=== PATIENT | female | born 1945 | race Caucasian/White ===

== ENCOUNTER → 2017-12-08 07:36 | Outpatient (CLI) | payer MEDICARE, SELFPAY ==
[2017-12-08 10:00] LABS: Absolute Lymphocyte Count 1.65 X10^3/ul (0.83-4.51); Absolute Neutrophil Count 3.4 X10^3/uL (2.0-7.7); Basophil# 0.02 X10^3/uL; Basophil% 0.4 % (0-1); Eosinophil# 0.09 X10^3/uL; Eosinophils% 1.6 % (0-5); Hematocrit 44.4 % (37-47); Hemoglobin 14.5 g/dl (12.0-15.0); Lymphocyte # 1.65 X10^3/ul (4.0); Lymphocyte % 30.1 % (19-41); Mean Corp Hgb Conc 32.7 g/gl (32-36); Mean Corpuscular Volume 94.9 fL (81-99); Mean Platelet Vol. 10.7 fl (6.2-12.0); Monocyte# 0.35 X10^3/uL; Monocyte% 6.4 % (0-10); Neutrophil # 3.37 X10^3/uL (2.7-7.7); Neutrophil % 61.5 % (47-70); Platelet Count 150 K/mm3 (150-450); RBC Distribution Width CV 13.7 % (11.6-14.6); RBC Distribution Width SD 46.8 fl (35.1-43.9); Red Blood Count 4.68 M/mm3 (4.2-5.4); White Blood Count 5.5 K/mm3 (4.4-11.0)
[2017-12-08 10:02] LABS: POSITIVE COUNT NO; POSITIVE DIFFERENTIAL NO; POSITIVE MORPHOLOGY NO
[2017-12-08 10:17] LABS: Anion Gap 6 (5-15); BUN 13 mg/dL (7-18); BUN/Creat Ratio 15.7 RATIO (10-20); Calcium,Total 9.6 mg/dL (8.5-10.1); Chloride 104 mmol/L (98-107); Cholesterol 135 mg/dL (200); Creatinine, Serum 0.83 mg/dL (0.55-1.02); EST Glomerular Filtration Rate 72 mL/min (>60); Est Glom Filt Rate - Afr Amer 88 mL/min (>60); Glucose 92 mg/dL (74-106); High Density Lipoprotein 37 mg/dL; Potassium 3.7 mmol/L (3.5-5.1); Sodium Level 141 mmol/L (136-145); Triglycerides 167 mg/dL; Very Low Density Lipoprotein 33 mg/dL (5-40)
== END ==
PROVIDERS: Family Provider Family Medicine; PCP Family Medicine; Visit Provider Family Medicine
DX: I10 Essential (primary) hypertension (principal); M85.80 Other specified disorders of bone density and structure, unspecified site; E78.00 Pure hypercholesterolemia, unspecified
CPT/HCPCS: 36415; 80048; 80061; 85025

== ENCOUNTER → 2018-02-26 06:30 | Outpatient (CLI) | payer MEDICARE, SELFPAY ==
--- NOTE | 2018-02-26 06:33 | CT_ITS ---
STUDY: CT SOFT TISSUE NECK WITH CONTRAST REASON FOR EXAM: Female, 72 years old. Left ear/cheek fullness. Numbness and tingling feeling and left cheek/nose. RADIATION DOSAGE (If Supplied By Facility): CTDIvol = ( 13.73 ) mGy, DLP = ( 439.08 ) mGycm TECHNIQUE: The patient was scanned in a multi-detector CT scanner. High resolution transaxial imaging was performed following intravenous administration of 75 ml of Isovue 300 contrast material. Sagittal and coronal images were reconstructed. Individualized dose optimization techniques were used for this CT. COMPARISON: None. FINDINGS: Normal bilateral parotid glands. Normal bilateral interventional cardiologist spaces. Normal bilateral parapharyngeal spaces. Normal bilateral carotid spaces. Normal bilateral sublingual and submandibular glands and spaces. Normal visualized nasopharynx. Normal retropharyngeal space. Normal perivertebral space. Normal visualized bilateral faucial tonsils. The visualized tongue, tongue base and oropharynx are normal. The visualized cervical lymph nodes (levels I-) are within normal size limits, and maintain normal morphology. There is no demonstrated solid or cystic mass lesion. There is no abnormal contrast enhancement. Normal epiglottis, bilateral vallecula and hypopharynx. The pre-epiglottic and paraglottic adipose spaces are normal. Normal visualized bilateral piriform sinuses, aryepiglottic folds, vocal cords, and arytenoid-cricoid articulations. Normal subglottic trachea. Normal bilateral lobes of the thyroid gland. Normal visualized pulmonary apices. Normal visualized paranasal sinuses. Normal visualized cervical spine. CT/Soft Tissue Neck WITH Contrast IMPRESSION: Normal enhanced CT examination of the soft tissues of the neck. Electronically Signed: Jayjay Stokes MD at 14:14 EDT , Service support ,
[2018-02-26 06:50] LABS: CREATININE FINGERSTICK < 0.6 mg/dL (0.55-1.02)
--- NOTE | 2018-02-26 07:22 | BI_ITS ---
MAMMOGRAPHY - BILATERAL SCREENING REASON FOR EXAM: Female, 72 years old. Routine annual screening examination. PERTINENT HISTORY: Mother with breast cancer. TECHNIQUE: Digital bilateral breast fabi (3D mammographic acquisition) in the CC and MLO projections. 2-D mediolateral oblique (MLO) and craniocaudad (CC) views of both breasts were obtained. CAD: Full Field Digital Mammography with Computer Added Detection was performed. COMPARISON: Comparison is made with prior examination dated February 17, 2017 and February 12, 2016. FINDINGS: Breast Composition: There are scattered areas of fibroglandular density. There are no dominant masses or suspicious calcifications. No other significant abnormalities are identified. There has been no significant change since the prior study. BI/SCREENING MAMM (CAD), BILAT IMPRESSION: Stable bilateral screening mammogram. Yearly follow-up mammogram recommended. (A) ASSESSMENT CATEGORY: BIRADS Category 1: Negative. A letter regarding these results will be sent to the patient by the facility within 30 days. Approximately 10% of breast cancers are not detected by mammography. A normal mammogram should not delay biopsy of a clinically suspicious abnormality. [id number] Electronically Signed: Dariusz Saenz MD at 10:44 EDT Tel [phone], Service support ,
== END ==
PROVIDERS: Otolaryngology; Family Provider Family Medicine; PCP Family Medicine; Visit Provider Obstetrics & Gynecology
DX: H92.02 Otalgia, left ear (principal); Z12.31 Encounter for screening mammogram for malignant neoplasm of breast
CPT/HCPCS: 70491; 77063; 77067; Q9967

== ENCOUNTER → 2018-12-31 07:51 | Outpatient (CLI) | payer MEDICARE, SELFPAY ==
[2018-02-26 08:04] VITALS: BMI 29.5
[2018-12-31 08:45] LABS: AST(SGOT) 13 U/L (15-37); Alanine Aminotransfer ALT/SGPT 24 U/L (13-56); Albumin, Serum 3.9 g/dL (3.2-5.0); Alkaline Phosphatase 92 U/L (45-117); Anion Gap 4 (5-15); BUN 13 mg/dL (7-18); BUN/Creat Ratio 15.7 RATIO (10-20); Bilirubin, Direct 0.21 mg/dL (0.00-0.30); Calcium,Total 9.6 mg/dL (8.5-10.1); Chloride 107 mmol/L (98-107); Cholesterol 172 mg/dL (200); Creatinine, Serum 0.83 mg/dL (0.55-1.02); EST Glomerular Filtration Rate 72 mL/min (>60); Est Glom Filt Rate - Afr Amer 88 mL/min (>60); Glucose 104 mg/dL (74-106); High Density Lipoprotein 41 mg/dL; Potassium 3.8 mmol/L (3.5-5.1); Protein, Total 6.9 g/dL (6.4-8.2); Sodium Level 141 mmol/L (136-145); Triglycerides 181 mg/dL; Very Low Density Lipoprotein 36 mg/dL (5-40)
== END ==
PROVIDERS: Family Provider Family Medicine; PCP Family Medicine; Referring Provider Family Medicine; Visit Provider Family Medicine
DX: K76.89 Other specified diseases of liver (principal); E78.00 Pure hypercholesterolemia, unspecified; I10 Essential (primary) hypertension
CPT/HCPCS: 36415; 80048; 80061; 80076

== ENCOUNTER → 2019-03-04 08:24 | Outpatient (CLI) | payer MEDICARE, SELFPAY ==
[2018-02-26 08:04] VITALS: BMI 29.5
--- NOTE | 2019-03-04 08:26 | BI_ITS ---
MAMMOGRAPHY - BILATERAL SCREENING REASON FOR EXAM: Female, 73 years old. Routine annual screening examination. PERTINENT HISTORY: Mother with breast cancer. TECHNIQUE: Digital bilateral breast fabi (3D mammographic acquisition) in the CC and MLO projections. 2-D mediolateral oblique (MLO) and craniocaudad (CC) views of both breasts were obtained. CAD: Full Field Digital Mammography with Computer Added Detection was performed. COMPARISON: Comparison is made with prior study dated February 26, 2018 and February 17, 2017. FINDINGS: Breast Composition: There are scattered areas of fibroglandular density. There are no dominant masses or suspicious calcifications. Stable benign-appearing bilateral axillary lymph nodes. No other significant abnormalities are identified. There has been no significant change since the prior study. BI/SCREENING MAMM (CAD), BILAT IMPRESSION: Stable bilateral screening mammogram. Yearly follow-up mammogram recommended. (A) ASSESSMENT CATEGORY: BIRADS Category 2: Benign. A letter regarding these results will be sent to the patient by the facility within 30 days. Approximately 10% of breast cancers are not detected by mammography. A normal mammogram should not delay biopsy of a clinically suspicious abnormality. [id number] Electronically Signed: Dariusz Saenz, at 11:26 EDT , Service support ,
== END ==
PROVIDERS: Family Provider Family Medicine; PCP Family Medicine; Referring Provider Obstetrics & Gynecology; Visit Provider Obstetrics & Gynecology
DX: Z12.31 Encounter for screening mammogram for malignant neoplasm of breast (principal); Z80.3 Family history of malignant neoplasm of breast
CPT/HCPCS: 77067

== ENCOUNTER → 2019-03-06 14:54 | Outpatient (CLI) | payer MEDICARE, SELFPAY ==
[2019-03-04 09:10] VITALS: BMI 29.5
--- NOTE | 2019-03-06 14:57 | US_ITS ---
STUDY: ULTRASOUND BREAST - LEFT REASON FOR EXAM: Female, 73 years old. Palpable lump in the left breast. TECHNIQUE: Axial and longitudinal images of the LEFT breast were performed with a high resolution ultrasound transducer. COMPARISON: Comparison is made with prior mammogram dated March 04, 2019. FINDINGS: LEFT Breast: There is evidence of retroareolar ductal dilatation. No solid or cystic mass lesion is seen. US/Breast Limited Unilateral IMPRESSION: Retroareolar ductal dilatation. ASSESSMENT CATEGORY: BIRADS Category 2: Benign. A letter regarding these results will be sent to the patient by the facility within 30 days. Electronically Signed: Dariusz Saenz, at 15:53 EDT , Service support ,
== END ==
PROVIDERS: Family Provider Family Medicine; PCP Family Medicine; Referring Provider Obstetrics & Gynecology; Visit Provider Obstetrics & Gynecology
DX: N60.42 Mammary duct ectasia of left breast (principal)
CPT/HCPCS: 76642

== ENCOUNTER → 2019-06-11 16:44 | Outpatient (CLI) | payer MEDICARE, SELFPAY ==
[2019-06-11 15:03] VITALS: BMI 29.5
== END ==
PROVIDERS: Family Provider Family Medicine; PCP Family Medicine; Referring Provider Nurse Practitioner Women's Health; Visit Provider Nurse Practitioner Women's Health
DX: N63.20 Unspecified lump in the left breast, unspecified quadrant (principal); N94.9 Unspecified condition associated with female genital organs and menstrual cycle
CPT/HCPCS: 87070; 87086; 87088; 87186; 87205

== ENCOUNTER → 2019-06-14 15:04 | Outpatient (CLI) | payer MEDICARE, SELFPAY ==
[2019-06-11 15:03] VITALS: BMI 29.5
--- NOTE | 2019-06-14 15:05 | US_ITS ---
STUDY: ULTRASOUND OF THE FEMALE PELVIS - COMPLETE REASON FOR EXAM: Female, 73 years old. PELVIC PAIN LMP: Unknown. TECHNIQUE: Transabdominal and Transvaginal TECHNICAL QUALITY: Limited. Examination limited by bowel gas. COMPARISON: None. FINDINGS: The uterus is anteverted and is in a midline position. The uterus measures 6.8 x 3.1 cm. There are several nabothian cysts. There is some suggestion of a fluid collection within the cervix. The endometrium measures 3.8 mm in thickness, and is fluid distended. There is no demonstrated endometrial mass. There is no demonstrated myometrial mass. I.U.D. - The patient does not have an I.U.D. Bilateral ovaries are not visualized. There is no fluid in the cul-de-sac. The volume of the bladder was 540.87 ml. US/Pelvic (Non ) IMPRESSION: Uterine atrophy with fluid within the endometrium and possible complex fluid collection within the cervix, cannot exclude inflammatory process versus neoplasm. Further characterization with MRI of the pelvis with intravenous contrast recommended in nonacute setting. Nonvisualized ovaries. No free fluid. Electronically Signed: Tejal Quiroga MD at 4:16 EST , Service support ,
--- NOTE | 2019-06-14 15:05 | US_ITS ---
STUDY: ULTRASOUND OF THE FEMALE PELVIS - COMPLETE REASON FOR EXAM: Female, 73 years old. PELVIC PAIN LMP: Unknown. TECHNIQUE: Transabdominal and Transvaginal TECHNICAL QUALITY: Limited. Examination limited by bowel gas. COMPARISON: None. FINDINGS: The uterus is anteverted and is in a midline position. The uterus measures 6.8 x 3.1 cm. There are several nabothian cysts. There is some suggestion of a fluid collection within the cervix. The endometrium measures 3.8 mm in thickness, and is fluid distended. There is no demonstrated endometrial mass. There is no demonstrated myometrial mass. I.U.D. - The patient does not have an I.U.D. Bilateral ovaries are not visualized. There is no fluid in the cul-de-sac. The volume of the bladder was 540.87 ml. US/Transvaginal Non- IMPRESSION: Uterine atrophy with fluid within the endometrium and possible complex fluid collection within the cervix, cannot exclude inflammatory process versus neoplasm. Further characterization with MRI of the pelvis with intravenous contrast recommended in nonacute setting. Nonvisualized ovaries. No free fluid. Electronically Signed: Tejal Quiroga MD at 4:16 EST , Service support ,
== END ==
PROVIDERS: Family Provider Family Medicine; PCP Family Medicine; Referring Provider Nurse Practitioner Women's Health; Visit Provider Nurse Practitioner Women's Health
DX: R10.2 Pelvic and perineal pain (principal)
CPT/HCPCS: 76830; 76856

== ENCOUNTER 2019-09-09 12:39 | Emergency (ER) | payer MEDICARE, SELFPAY ==
[2019-06-11 15:03] VITALS: BMI 29.5
[2019-09-09 12:40] VITALS: BP 132/99; PULSE 87; RESP 20; TEMP 36.6; O2SAT 98
--- NOTE | 2019-09-09 12:50 | RAD_ITS ---
STUDY: X-RAY CHEST REASON FOR EXAM: Female, 73 years old. Productive cough TECHNIQUE: Single AP portable view of the chest. COMPARISON: Comparison is made with prior study dated January 30, 2014. FINDINGS: There is evidence of a infiltration in the left suprahilar region. This may represent a focal pneumonia. Radiographic follow-up until clearing is recommended. There is no demonstrated pleural abnormality. Normal size heart. Normal mediastinum and iram. Normal visualized pulmonary arteries. There is atherosclerotic tortuosity of the aortic arch and descending thoracic aorta. There are degenerative changes of the visualized thoracic spine. Normal visualized ribs, clavicles, and shoulders. There is no demonstrated abnormality of the visualized soft tissue structures of the upper abdomen. RAD/Chest 1 View (Portable) IMPRESSION: Focal infiltrate in the left suprahilar region suggestive of early pneumonia. Radiographic follow-up is recommended until clearing. Electronically Signed: Dariusz Saenz, at 13:30 EDT , Service support ,
--- NOTE | 2019-09-09 12:51 | ED.VISSUMM ---
- ER Visit Summary Date of Service: 09/09/19 Chief Complaint: Cough History of Present Illness: The patient is a 73 F who presents with a cough. She has had this for about 1 week. She states her cough is been mildly productive. She saw her PCP on September 01. He gave her Tessalon Perles but she is not improving. She had negative flu a and B testing at the PCP office. She has some slight nasal congestion. She denies a sore throat or ear pain. No fevers. No body aches. Denies any exposures to coronavirus. Is not a smoker. No history of any lung issues in the past. Physical Examination: Vital signs reviewed. HEENT exam unremarkable. Heart is regular rate and rhythm without murmurs. Lungs are clear to auscultation. Abdomen is soft and nontender. Extremities reveal no edema. Skin exam normal. Neurologic exam normal. Test Results: Chest x-ray shows a focal infiltrate in the left suprahilar area Emergency Department Course and Treatment: The patient was given albuterol MDI here. She does have a focal infiltrate on x-ray. Her vital signs are unremarkable. I feel she can be treated as an outpatient. I will give her doxycycline. She will call her doctor for follow-up. Treatment Plan: [] Disposition: Discharge Impression: Pneumonia This note was generated with [email or web address] dictation software. It may contain incorrect words, spelling, and punctuation that were not noted in review of the chart prior to signing ED Disposition - Plan for ED Patient: Disposition: Home or Assisted Living Instructions: ED PNEUMONITIS Adult Prescriptions: Doxycycline 100 mg PO BID #20 cap Transmission Status: Pending to [id number] Doxycycline 100 mg PO BID #20 cap Transmission Status: Pending to [facility] Referrals: Gelacio Hutchison MD [STAFF PHYSICIAN] -
[2019-09-09 13:15] VITALS: BP 132/99; PULSE 87; RESP 20; TEMP 36.6; O2SAT 98
== END 2019-09-09 14:42 | disposition home or self-care (01) ==
PROVIDERS: Emergency Provider Emergency Medicine; PCP Family Medicine
DX: J18.9 Pneumonia, unspecified organism (principal); I10 Essential (primary) hypertension; E78.00 Pure hypercholesterolemia, unspecified
CPT/HCPCS: 71045; 94640; 99282

== ENCOUNTER → 2019-09-23 09:19 | Outpatient (CLI) | payer MEDICARE, SELFPAY ==
--- NOTE | 2019-09-23 09:38 | RAD_ITS ---
STUDY: X-RAY CHEST REASON FOR EXAM: Female, 73 years old. RECHECK FOR RECENT PNEUMONIA DIAGNOSIS. PATIENT IS STILL COUGHING. TECHNIQUE: PA and lateral views of the chest. COMPARISON: Comparison is made with prior study dated September 09, 2019. FINDINGS: The previously seen left suprahilar infiltrate has cleared. No new infiltrate is present. There is no demonstrated pleural abnormality. Normal size heart. Normal mediastinum and iram. Normal visualized pulmonary arteries. There is atherosclerotic tortuosity of the aortic arch and descending thoracic aorta. Normal visualized thoracic spine. Normal visualized ribs, clavicles, and shoulders. There is no demonstrated abnormality of the visualized soft tissue structures of the upper abdomen. RAD/Chest PA and Lateral IMPRESSION: The left suprahilar infiltrate has cleared. Electronically Signed: Dariusz Saenz, at 10:14 EDT , Service support ,
== END ==
PROVIDERS: PCP Family Medicine; Referring Provider Family Medicine; Visit Provider Family Medicine
DX: J18.9 Pneumonia, unspecified organism (principal)
CPT/HCPCS: 71046

== ENCOUNTER → 2019-12-18 07:43 | Outpatient (CLI) | payer MEDICARE, SELFPAY ==
[2019-12-18 07:47] LABS: Mucous, Urine 0 SEEN /hpf (<or=2+)
[2019-12-18 10:28] LABS: Absolute Lymphocyte Count 1.51 X10^3/uL (0.83-4.51); Absolute Neutrophil Count 3.6 X10^3/uL (2.0-7.7); Basophil# 0.05 X10^3/uL; Basophil% 0.9 % (0-1); Eosinophil# 0.14 X10^3/uL; Eosinophils% 2.5 % (0-5); Hematocrit 45.3 % (37-47); Hemoglobin 14.6 g/dL (12.0-15.0); Lymphocyte # 1.51 X10^3/ul (4.0); Lymphocyte % 26.7 % (19-41); Mean Corp Hgb Conc 32.2 g/dL (32-36); Mean Corpuscular Hgb 31.1 pg (27.0-32.0); Mean Corpuscular Volume 96.4 fL (81-99); Mean Platelet Vol. 10.9 fl (6.2-12.0); Monocyte% 7.1 % (0-10); NRBC Flagged by Analyzer 0 % (0-5); Neutrophil # 3.55 X10^3/uL (2.7-7.7); Neutrophil % 62.8 % (47-70); Platelet Count 171 K/mm3 (150-450); RBC Distribution Width CV 13.3 % (11.6-14.6); RBC Distribution Width SD 47.8 fl (35.1-43.9); White Blood Count 5.7 K/mm3 (4.4-11.0)
[2019-12-18 10:30] LABS: Color, Urine Amber (Yellow); Glucose, Dipstick Normal (Normal); Ketone-Dipstick 5 mg/dl (Negative); Leukocyte Esterase-Dipstick 100 /ul (Negative); Nitrite-Dipstick Negative (Negative); Occult Blood-Urine 10 /ul (Negative); Protein-Dipstick 30 mg/dl (Negative); Specific Gravity, Urine 1.025 (1.002-1.030); Urine Clarity Clear (Clear); Urine Urobilinogen 4 mg/dl (Normal)
[2019-12-18 10:34] LABS: Urine Bilirubin Dipstick 1 mg/dL (Negative)
[2019-12-18 10:39] LABS: Bacteria 1+ /hpf (None Seen); Red Blood Cells-Urine 0-5 SEEN /hpf (0-5); Squamous Epithelial Cells - UA 0-5 SEEN /hpf (5-10); White Blood Cells 10-25 SEEN /hpf (0-5)
[2019-12-18 11:17] LABS: ALB/GLOB Ratio 1.2 RATIO (0.9-2.4); AST(SGOT) 14 U/L (15-37); Alanine Aminotransfer ALT/SGPT 25 U/L (13-56); Albumin, Serum 3.9 g/dL (3.2-5.0); Alkaline Phosphatase 90 U/L (45-117); Anion Gap 5 (5-15); BUN 15 mg/dL (7-18); BUN/Creat Ratio 16.6 RATIO (10-20); Calcium,Total 9.5 mg/dL (8.5-10.1); Chloride 105 mmol/L (98-107); Cholesterol 180 mg/dL (200); EST Glomerular Filtration Rate 65 mL/min (>60); Est Glom Filt Rate - Afr Amer 79 mL/min (>60); Globulin 3.2 g/dL (2.2-4.2); Glucose 104 mg/dL (74-106); High Density Lipoprotein 40 mg/dL; Potassium 3.5 mmol/L (3.5-5.1); Protein, Total 7.1 g/dL (6.4-8.2); Sodium Level 140 mmol/L (136-145); Thyroid Stim Hormone (TSH) 2.26 uIU/mL (0.358-3.74); Triglycerides 205 mg/dL; Very Low Density Lipoprotein 41 mg/dL (5-40)
[2019-12-19 14:24] LABS: Hemoglobin A1c 5.2 % (3.8-5.6)
== END ==
PROVIDERS: PCP Family Medicine; Referring Provider Family Medicine; Visit Provider Family Medicine
DX: I10 Essential (primary) hypertension (principal); R82.81 Pyuria; R73.09 Other abnormal glucose; E78.00 Pure hypercholesterolemia, unspecified
CPT/HCPCS: 36415; 80053; 80061; 81001; 83036; 84443; 85025

== ENCOUNTER → 2019-12-20 12:32 | Outpatient (CLI) | payer MEDICARE, SELFPAY | PROVIDERS: PCP Family Medicine; Referring Provider Family Medicine; Visit Provider Family Medicine | DX: R82.81 Pyuria (principal) | CPT/HCPCS: 87086; 87088 ==

== ENCOUNTER → 2020-03-17 12:26 | Outpatient (CLI) | payer MEDICARE, SELFPAY ==
[2019-06-11 15:03] VITALS: BMI 29.5
--- NOTE | 2020-03-17 12:26 | BI_ITS ---
MAMMOGRAPHY - BILATERAL SCREENING REASON FOR EXAM: Female, 74 years old. Routine annual screening examination. PERTINENT HISTORY: Mother with breast cancer. TECHNIQUE: Digital bilateral breast andrea (3D mammographic acquisition) in the CC and MLO projections. 2-D mediolateral oblique (MLO) and craniocaudad (CC) views of both breasts were obtained. CAD: Full Field Digital Mammography with Computer Added Detection was performed. COMPARISON: Comparison is made with prior examination dated 03/04/2019 and 02/26/2018. FINDINGS: Breast Composition: There are scattered areas of fibroglandular density. There are no dominant masses or suspicious calcifications. No other significant abnormalities are identified. There has been no significant change since the prior study. BI/SCREEN MAMM (CAD) W/ANDREA BILAT IMPRESSION: Stable bilateral screening mammogram. Yearly follow-up mammogram recommended. (A) ASSESSMENT CATEGORY: BIRADS Category 1: Negative. A letter regarding these results will be sent to the patient by the facility within 30 days. Approximately 10% of breast cancers are not detected by mammography. A normal mammogram should not delay biopsy of a clinically suspicious abnormality. [id number] Electronically Signed: Dariusz Saenz, at 14:26 EDT , Service support ,
== END ==
PROVIDERS: PCP Family Medicine; Referring Provider Obstetrics & Gynecology; Visit Provider Obstetrics & Gynecology
DX: Z12.31 Encounter for screening mammogram for malignant neoplasm of breast (principal)
CPT/HCPCS: 77063; 77067

== ENCOUNTER → 2020-04-02 10:11 | Outpatient (CLI) | payer MEDICARE, SELFPAY ==
[2020-03-17 13:06] VITALS: BMI 5033.5
--- NOTE | 2020-04-02 10:25 | BD_ITS ---
STUDY: DUAL ENERGY X-RAY ABSORPTIOMETRY / DXA REASON FOR EXAM: Female, 74 years old. Age of jc 54. Pat is 178.7# and 64 and quot; a loss of 3/4 and quot; per pat. Pat takes a BPM with a diuretic in it. Takes calcium and a multi-vit. Exercises moderatly. Fam hx of osteo. TECHNIQUE: Bone Mineral Density (BMD) measurements of lumbar spine and bilateral hips were obtained. COMPARISON: Comparison is made with prior study to 03/01/2017. FINDINGS: Lumbar Spine (L1-L4): g/cm2 (1.061) / T-score (-0.9) / Z-score (0.8) Findings are suggestive of normal bone density with a low fracture risk. Left Femur Total: g/cm2 (0.915) / T-score (-0.7) / Z-score (0.8) Left Femoral Neck: g/cm2 (0.739) / T-score (-2.2) / Z-score (-0.4) Right Femur Total: g/cm2 (0.967) / T-score (-0.3) / Z-score (1.3) Right Femoral Neck: g/cm2 (0.826) / T-score (-1.5) / Z-score (0.3) The T-Scores on the most recent prior examination were: Lumbar Spine (L1-L4): There has been improvement of bone density since the previous examination. Left Femur Total: which represents an improvement of 2.7%. Right Femur Total: which represents an improvement of 1.2%. BD/Dexa Bone Density Study IMPRESSION: The patient is considered osteopenic as outlined below according to World [employer] Organization (WHO) criteria with a moderate fracture risk. There has been improvement of bone density since the previous examination. Reference Information: The T-score is the number of standard deviations above or below the standard which is normal for young adults at their peak bone mineral density. The World Health Organization (WHO) interprets the T-scores as follows: Above -1 Normal bone density Between -1 and -2.5 Osteopenia Equal to / or below -2.5 Osteoporosis As a practical clinical guideline, osteopenia may be graded as follows: Mild -1 through -1.5 Moderate -1.6 through -2.0 Severe -2.1 through -2.4 The Z-score is the number of standard deviations above or below age-matched controls. A Z-score of less than -1.5 would be considered abnormal. References: 1. NIH Osteoporosis and Related Bone Diseases www osteo.org 2. International Society for Clinical Densitometry www iscd.org 3. National Osteoporosis Foundation www nof.org Electronically Signed: Dariusz Saenz, at 10:47 EDT , Service support ,
== END ==
PROVIDERS: PCP Family Medicine; Referring Provider Family Medicine; Visit Provider Family Medicine
DX: Z78.0 Asymptomatic menopausal state (principal)
CPT/HCPCS: 77080

== ENCOUNTER → 2020-09-02 07:53 | Outpatient (CLI) | payer MEDICARE, SELFPAY ==
[2020-03-17 13:06] VITALS: BMI 5033.5
[2020-09-02 07:59] LABS: Mucous, Urine 0 SEEN /hpf (<or=2+); Red Blood Cells-Urine 0 SEEN /hpf (0-5)
[2020-09-02 10:17] LABS: Absolute Lymphocyte Count 1.47 X10^3/uL (0.83-4.51); Absolute Neutrophil Count 3.6 X10^3/uL (2.0-7.7); Basophil# 0.05 X10^3/uL; Basophil% 0.9 % (0-1); Eosinophils% 1.8 % (0-5); Hematocrit 45.1 % (37-47); Hemoglobin 15.1 g/dL (12.0-15.0); Lymphocyte # 1.47 X10^3/ul (4.0); Lymphocyte % 26.3 % (19-41); Mean Corp Hgb Conc 33.5 g/dL (32-36); Mean Corpuscular Hgb 31.7 pg (27.0-32.0); Mean Corpuscular Volume 94.5 fL (81-99); Mean Platelet Vol. 11.1 fl (6.2-12.0); Monocyte# 0.39 X10^3/uL; NRBC Flagged by Analyzer 0 % (0-5); Neutrophil # 3.56 X10^3/uL (2.7-7.7); Neutrophil % 63.8 % (47-70); Platelet Count 162 K/mm3 (150-450); RBC Distribution Width CV 13.4 % (11.6-14.6); RBC Distribution Width SD 47.1 fl (35.1-43.9); Red Blood Count 4.77 M/mm3 (4.2-5.4); White Blood Count 5.6 K/mm3 (4.4-11.0)
[2020-09-02 10:18] LABS: Color, Urine Yellow (Yellow); Glucose, Dipstick Normal (Normal); Ketone-Dipstick 5 mg/dl (Negative); Leukocyte Esterase-Dipstick 100 /ul (Negative); Nitrite-Dipstick Negative (Negative); Occult Blood-Urine 10 /ul (Negative); Protein-Dipstick 30 mg/dl (Negative); Specific Gravity, Urine 1.025 (1.002-1.030); Urine Clarity Sl. Cloudy (Clear); Urine Urobilinogen 4 mg/dl (Normal)
[2020-09-02 10:19] LABS: Urine Bilirubin Dipstick 1 mg/dL (Negative)
[2020-09-02 10:31] LABS: Squamous Epithelial Cells - UA 0-5 SEEN /hpf (5-10); White Blood Cells 0-5 SEEN /hpf (0-5)
[2020-09-02 10:32] LABS: Bacteria RARE /hpf (None Seen)
[2020-09-02 10:56] LABS: ALB/GLOB Ratio 1.2 RATIO (0.9-2.4); AST(SGOT) 19 U/L (15-37); Alanine Aminotransfer ALT/SGPT 30 U/L (13-56); Alkaline Phosphatase 91 U/L (45-117); Anion Gap 8 (5-15); BUN 17 mg/dL (7-18); BUN/Creat Ratio 19.3 RATIO (10-20); Calcium,Total 9.8 mg/dL (8.5-10.1); Chloride 103 mmol/L (98-107); Cholesterol 189 mg/dL (200); Creatinine, Serum 0.88 mg/dL (0.55-1.02); EST Glomerular Filtration Rate 67 mL/min (>60); Est Glom Filt Rate - Afr Amer 81 mL/min (>60); Globulin 3.2 g/dL (2.2-4.2); Glucose 100 mg/dL (74-106); High Density Lipoprotein 43 mg/dL; Phosphorus 2.6 mg/dL (2.5-4.9); Potassium 3.2 mmol/L (3.5-5.1); Protein, Total 7.2 g/dL (6.4-8.2); Sodium Level 140 mmol/L (136-145); Triglycerides 203 mg/dL; Very Low Density Lipoprotein 41 mg/dL (5-40)
== END ==
PROVIDERS: PCP Family Medicine; Referring Provider Family Medicine; Visit Provider Family Medicine
DX: I10 Essential (primary) hypertension (principal); E78.00 Pure hypercholesterolemia, unspecified; M85.80 Other specified disorders of bone density and structure, unspecified site
CPT/HCPCS: 36415; 80053; 80061; 81001; 82306; 84100; 85025

== ENCOUNTER → 2020-09-26 09:24 | Outpatient (CLI) | payer MEDICARE, SELFPAY ==
[2020-03-17 13:06] VITALS: BMI 5033.5
[2020-09-26 10:18] LABS: Anion Gap 3 (5-15); BUN 14 mg/dL (7-18); BUN/Creat Ratio 14.7 RATIO (10-20); Calcium,Total 9.9 mg/dL (8.5-10.1); Chloride 104 mmol/L (98-107); Creatinine, Serum 0.95 mg/dL (0.55-1.02); EST Glomerular Filtration Rate 61 mL/min (>60); Est Glom Filt Rate - Afr Amer 74 mL/min (>60); Glucose 86 mg/dL (74-106); Potassium 3.5 mmol/L (3.5-5.1); Sodium Level 139 mmol/L (136-145)
== END ==
PROVIDERS: PCP Family Medicine; Referring Provider Family Medicine; Visit Provider Family Medicine
DX: I10 Essential (primary) hypertension (principal)
CPT/HCPCS: 36415; 80048

== ENCOUNTER → 2020-12-03 08:13 | Outpatient (CLI) | payer MEDICARE, SELFPAY ==
[2020-03-17 13:06] VITALS: BMI 5033.5
[2020-12-03 10:10] LABS: Absolute Lymphocyte Count 1.64 X10^3/uL (0.83-4.51); Absolute Neutrophil Count 4.3 X10^3/uL (2.0-7.7); Basophil# 0.06 X10^3/uL; Basophil% 0.9 % (0-1); Eosinophil# 0.12 X10^3/uL; Eosinophils% 1.8 % (0-5); Hematocrit 44.3 % (37-47); Hemoglobin 14.6 g/dL (12.0-15.0); Lymphocyte # 1.64 X10^3/ul (0.83-4.51); Lymphocyte % 24.7 % (19-41); Mean Corpuscular Volume 94.1 fL (81-99); Mean Platelet Vol. 10.6 fl (6.2-12.0); Monocyte# 0.52 X10^3/uL; Monocyte% 7.8 % (0-10); NRBC Flagged by Analyzer 0 % (0-5); Neutrophil % 64.6 % (47-70); Platelet Count 185 K/mm3 (150-450); RBC Distribution Width CV 13.2 % (11.6-14.6); RBC Distribution Width SD 45.5 fl (35.1-43.9); Red Blood Count 4.71 M/mm3 (4.2-5.4); White Blood Count 6.7 K/mm3 (4.4-11.0)
[2020-12-03 10:26] LABS: ALB/GLOB Ratio 1.4 RATIO (0.9-2.4); AST(SGOT) 15 U/L (15-37); Alanine Aminotransfer ALT/SGPT 23 U/L (13-56); Albumin, Serum 4.1 g/dL (3.2-5.0); Alkaline Phosphatase 90 U/L (45-117); Anion Gap 7 (5-15); BUN 16 mg/dL (7-18); BUN/Creat Ratio 18.6 RATIO (10-20); Calcium,Total 10.3 mg/dL (8.5-10.1); Chloride 103 mmol/L (98-107); Cholesterol 156 mg/dL (200); Creatinine, Serum 0.86 mg/dL (0.55-1.02); EST Glomerular Filtration Rate 69 mL/min (>60); Est Glom Filt Rate - Afr Amer 83 mL/min (>60); Glucose 98 mg/dL (74-106); High Density Lipoprotein 40 mg/dL; Potassium 3.9 mmol/L (3.5-5.1); Protein, Total 7.1 g/dL (6.4-8.2); Sodium Level 141 mmol/L (136-145); Triglycerides 236 mg/dL; Very Low Density Lipoprotein 47 mg/dL (5-40)
[2020-12-03 10:39] LABS: Vitamin D,25 Hydroxy 71.3 ng/mL
[2020-12-03 10:52] LABS: Microalbumin,Random Urine 10.6 mg/L (NO RANGE EST.); Microalbumin:Creatinine Ratio 11.8 mg/g CRE (<30 mg/g CRE)
[2020-12-04 16:13] LABS: PTHIN 103.1 pg/mL (18.4-80.1)
== END ==
PROVIDERS: PCP Family Medicine; Visit Provider Family Medicine
DX: I10 Essential (primary) hypertension (principal); E55.9 Vitamin D deficiency, unspecified; E78.00 Pure hypercholesterolemia, unspecified
CPT/HCPCS: 36415; 80053; 80061; 82043; 82306; 82570; 83970; 85025

== ENCOUNTER → 2021-03-05 08:13 | Outpatient (CLI) | payer MEDICARE, SELFPAY ==
[2021-03-05 10:08] LABS: Absolute Neutrophil Count 4.1 X10^3/uL (2.0-7.7); Basophil# 0.05 X10^3/uL; Basophil% 0.8 % (0-1); Eosinophils% 1.6 % (0-5); Hematocrit 43.1 % (37-47); Hemoglobin 14.3 g/dL (12.0-15.0); Lymphocyte % 23.1 % (19-41); Mean Corp Hgb Conc 33.2 g/dL (32-36); Mean Corpuscular Hgb 31.2 pg (27.0-32.0); Mean Corpuscular Volume 93.9 fL (81-99); Monocyte# 0.45 X10^3/uL; Monocyte% 7.4 % (0-10); NRBC Flagged by Analyzer 0 % (0-5); Neutrophil # 4.06 X10^3/uL (2.7-7.7); Neutrophil % 66.9 % (47-70); Platelet Count 173 K/mm3 (150-450); RBC Distribution Width CV 13.6 % (11.6-14.6); RBC Distribution Width SD 47.2 fl (35.1-43.9); Red Blood Count 4.59 M/mm3 (4.2-5.4); White Blood Count 6.1 K/mm3 (4.4-11.0)
[2021-03-05 10:35] LABS: PTHIN 122.3 pg/mL (18.4-80.1)
[2021-03-05 10:36] LABS: ALB/GLOB Ratio 1.1 RATIO (0.9-2.4); AST(SGOT) 13 U/L (15-37); Alanine Aminotransfer ALT/SGPT 23 U/L (13-56); Albumin, Serum 3.9 g/dL (3.2-5.0); Alkaline Phosphatase 85 U/L (45-117); Anion Gap 5 (5-15); BUN 13 mg/dL (7-18); BUN/Creat Ratio 14.8 RATIO (10-20); Calcium,Total 10.2 mg/dL (8.5-10.1); Chloride 104 mmol/L (98-107); Cholesterol 161 mg/dL (200); Creatinine, Serum 0.88 mg/dL (0.55-1.02); EST Glomerular Filtration Rate 67 mL/min (>60); Est Glom Filt Rate - Afr Amer 81 mL/min (>60); Globulin 3.4 g/dL (2.2-4.2); Glucose 108 mg/dL (74-106); High Density Lipoprotein 40 mg/dL; Potassium 3.7 mmol/L (3.5-5.1); Protein, Total 7.3 g/dL (6.4-8.2); Sodium Level 140 mmol/L (136-145); Triglycerides 206 mg/dL; Very Low Density Lipoprotein 41 mg/dL (5-40)
[2021-03-05 11:43] LABS: Vitamin D,25 Hydroxy 29.4 ng/mL
== END ==
PROVIDERS: PCP Family Medicine; Referring Provider Family Medicine; Visit Provider Family Medicine
DX: I10 Essential (primary) hypertension (principal); E78.00 Pure hypercholesterolemia, unspecified; E55.9 Vitamin D deficiency, unspecified; E21.3 Hyperparathyroidism, unspecified
CPT/HCPCS: 36415; 80053; 80061; 82306; 83970; 85025

== ENCOUNTER → 2021-03-22 09:52 | Outpatient (CLI) | payer MEDICARE, SELFPAY ==
[2020-03-17 13:06] VITALS: BMI 5033.5
--- NOTE | 2021-03-22 09:55 | BI_ITS ---
MAMMOGRAPHY - BILATERAL SCREENING REASON FOR EXAM: Female, 75 years old. Routine annual screening examination. PERTINENT HISTORY: Mother with breast cancer. TECHNIQUE: Digital bilateral breast andrea (3D mammographic acquisition) in the CC and MLO projections. 2-D mediolateral oblique (MLO) and craniocaudad (CC) views of both breasts were obtained. CAD: Full Field Digital Mammography with Computer Added Detection was performed. COMPARISON: Comparison is made with prior study dated 03/17/2020 and 03/04/2019. FINDINGS: Breast Composition: There are scattered areas of fibroglandular density. There are no dominant masses or suspicious calcifications. Small benign appearing bilateral axillary lymph nodes. No other significant abnormalities are identified. There has been no significant change since the prior study. BI/SCRN MAMM (CAD)W/ANDREA BILAT IMPRESSION: Stable bilateral screening mammogram. Yearly follow-up mammogram recommended. (A) ASSESSMENT CATEGORY: BIRADS Category 2: Benign. A letter regarding these results will be sent to the patient by the facility within 30 days. Approximately 10% of breast cancers are not detected by mammography. A normal mammogram should not delay biopsy of a clinically suspicious abnormality. [id number] Electronically Signed: Dariusz Saenz MD at 11:05 EDT , Service support ,
== END ==
PROVIDERS: PCP Family Medicine; Referring Provider Obstetrics & Gynecology; Visit Provider Obstetrics & Gynecology
DX: Z12.31 Encounter for screening mammogram for malignant neoplasm of breast (principal)
CPT/HCPCS: 77063; 77067

== ENCOUNTER → 2021-04-13 09:26 | Outpatient (CLI) | payer MEDICARE, SELFPAY ==
--- NOTE | 2021-04-13 09:31 | NM_ITS ---
CLINICAL: 75-year-old female with reported history of hypercalcemia. 99m Tc SESTAMIBI DUAL PHASE PARATHYROID SCINTIGRAPHY COMPARISON: None available FINDINGS: Following the intravenous administration of 25.8 mCi of 99m Tc sestamibi, image acquisitions of the anterior neck at approximately 15 minutes and 3.0 hours post radiopharmaceutical provision reveal: 1. Immediate static blood pool acquisitions demonstrate distribution of the radiopharmaceutical in the right-left thyroid colloid of a vaguely U-shaped thyroid gland. 2. Delayed images depict persistent tracer uptake defined in the superior pole of the left thyroid bed with otherwise near complete washout of the radiotracer from the previously defined remaining thyroid parenchyma. NM/Parathyroid Scan IMPRESSION: 1. ABNORMAL-POSITIVE 99m Tc SESTAMIBI PARATHYROID IMAGING DUAL PHASE EXAMINATION. 2. There is scintigraphic evidence of an apparent parathyroid adenoma involving the superior pole of the left thyroid bed as described above. Electronically Signed: Stanford Mendez DO at 22:16 EST Tel , Service support ,
== END ==
PROVIDERS: PCP Family Medicine; Referring Provider Family Medicine; Visit Provider Family Medicine
DX: E21.3 Hyperparathyroidism, unspecified (principal)
CPT/HCPCS: 78070; A9500

== ENCOUNTER 2021-06-18 09:31 | Outpatient (CLI) | payer MEDICARE, SELFPAY ==
[2021-06-18 10:37] LABS: Calcium,Total 8.7 mg/dL (8.5-10.1)
[2021-06-18 11:46] LABS: PTHIN 11.7 pg/mL (18.4-80.1)
== END 2021-06-18 23:59 | disposition home or self-care (01) ==
PROVIDERS: PCP Family Medicine; Referring Provider Family Medicine; Visit Provider Surgery Surgical Oncology
DX: E21.3 Hyperparathyroidism, unspecified (principal)
CPT/HCPCS: 36415; 82306; 82310; 83970

== ENCOUNTER 2021-08-09 14:23 | Outpatient (CLI) | payer MEDICARE, SELFPAY ==
[2021-08-09 18:06] LABS: Absolute Lymphocyte Count 1.71 X10^3/uL (0.83-4.51); Basophil# 0.05 X10^3/uL; Basophil% 0.7 % (0-1); Eosinophil# 0.17 X10^3/uL; Eosinophils% 2.3 % (0-5); Hematocrit 43.4 % (37-47); Hemoglobin 13.9 g/dL (12.0-15.0); Lymphocyte # 1.71 X10^3/ul (0.83-4.51); Mean Corpuscular Hgb 30.2 pg (27.0-32.0); Mean Corpuscular Volume 94.3 fL (81-99); Monocyte# 0.49 X10^3/uL; Monocyte% 6.6 % (0-10); NRBC Flagged by Analyzer 0 % (0-5); Neutrophil % 67.1 % (47-70); Platelet Count 198 K/mm3 (150-450); RBC Distribution Width CV 13.9 % (11.6-14.6); RBC Distribution Width SD 47.8 fl (35.1-43.9); White Blood Count 7.4 K/mm3 (4.4-11.0)
[2021-08-09 18:44] LABS: Vitamin D,25 Hydroxy 33.7 ng/mL
[2021-08-09 18:48] LABS: ALB/GLOB Ratio 1.3 RATIO (0.9-2.4); AST(SGOT) 20 U/L (15-37); Alanine Aminotransfer ALT/SGPT 29 U/L (13-56); Alkaline Phosphatase 93 U/L (45-117); Anion Gap 5 (5-15); BUN 13 mg/dL (7-18); BUN/Creat Ratio 13.9 RATIO (10-20); Calcium,Total 8.6 mg/dL (8.5-10.1); Chloride 105 mmol/L (98-107); Creatinine, Serum 0.93 mg/dL (0.55-1.02); EST Glomerular Filtration Rate 63 mL/min (>60); Est Glom Filt Rate - Afr Amer 76 mL/min (>60); Globulin 3.1 g/dL (2.2-4.2); Glucose 95 mg/dL (74-106); Potassium 3.3 mmol/L (3.5-5.1); Protein, Total 7.1 g/dL (6.4-8.2); Sodium Level 140 mmol/L (136-145)
[2021-08-10 08:24] LABS: PTHIN 51.7 pg/mL (18.4-80.1)
== END 2021-08-09 23:59 | disposition home or self-care (01) ==
LOC: MFPLAB 14:26
PROVIDERS: PCP Family Medicine; Visit Provider Family Medicine
DX: E78.00 Pure hypercholesterolemia, unspecified (principal); E55.9 Vitamin D deficiency, unspecified
CPT/HCPCS: 36415; 80053; 82306; 83970; 85025

== ENCOUNTER 2021-08-11 08:46 | Outpatient (CLI) | payer MEDICARE, SELFPAY ==
[2021-08-11 10:45] LABS: Cholesterol 142 mg/dL (200); High Density Lipoprotein 39 mg/dL; Triglycerides 167 mg/dL; Very Low Density Lipoprotein 33 mg/dL (5-40)
== END 2021-08-11 23:59 | disposition home or self-care (01) ==
LOC: MFPLAB 08:48
PROVIDERS: PCP Family Medicine; Referring Provider Family Medicine; Visit Provider Family Medicine
DX: E78.00 Pure hypercholesterolemia, unspecified (principal)
CPT/HCPCS: 36415; 80061

== ENCOUNTER 2021-08-19 09:53 | Outpatient (CLI) | payer MEDICARE, SELFPAY ==
[2021-08-19 12:35] LABS: Anion Gap 6 (5-15); BUN 17 mg/dL (7-18); BUN/Creat Ratio 18.5 RATIO (10-20); Calcium,Total 9.1 mg/dL (8.5-10.1); Chloride 102 mmol/L (98-107); Creatinine, Serum 0.92 mg/dL (0.55-1.02); EST Glomerular Filtration Rate 64 mL/min (>60); Est Glom Filt Rate - Afr Amer 77 mL/min (>60); Glucose 90 mg/dL (74-106); Magnesium 2.1 mg/dL (1.6-2.6); Potassium 3.3 mmol/L (3.5-5.1); Sodium Level 140 mmol/L (136-145)
== END 2021-08-19 23:59 | disposition home or self-care (01) ==
LOC: MFPLAB 09:55
PROVIDERS: PCP Family Medicine; Referring Provider Family Medicine; Visit Provider Family Medicine
DX: E87.6 Hypokalemia (principal)
CPT/HCPCS: 36415; 80048; 83735

== ENCOUNTER 2021-08-30 10:28 | Outpatient (CLI) | payer MEDICARE, SELFPAY ==
[2021-08-30 12:30] LABS: Potassium 3.4 mmol/L (3.5-5.1)
== END 2021-08-30 23:59 | disposition home or self-care (01) ==
LOC: MFPLAB 10:29
PROVIDERS: PCP Family Medicine; Visit Provider Family Medicine
DX: I10 Essential (primary) hypertension (principal)
CPT/HCPCS: 36415; 84132

== ENCOUNTER 2021-09-10 09:34 | Outpatient (CLI) | payer MEDICARE, SELFPAY ==
[2021-09-10 12:50] LABS: Anion Gap 4 (5-15); BUN 19 mg/dL (7-18); BUN/Creat Ratio 21.8 RATIO (10-20); Calcium,Total 8.2 mg/dL (8.5-10.1); Chloride 102 mmol/L (98-107); Creatinine, Serum 0.87 mg/dL (0.55-1.02); EST Glomerular Filtration Rate 68 mL/min (>60); Est Glom Filt Rate - Afr Amer 82 mL/min (>60); Glucose 86 mg/dL (74-106); Potassium 3.6 mmol/L (3.5-5.1); Sodium Level 139 mmol/L (136-145)
== END 2021-09-10 23:59 | disposition home or self-care (01) ==
LOC: MFPLAB 09:37
PROVIDERS: PCP Family Medicine; Referring Provider Family Medicine; Visit Provider Family Medicine
DX: I10 Essential (primary) hypertension (principal)
CPT/HCPCS: 36415; 80048

== ENCOUNTER → 2021-11-05 | Outpatient (CLI) | payer MEDICARE, SELFPAY ==
[2021-11-05 08:36] LABS: Mucous, Urine 0 SEEN /hpf (<or=2+); Red Blood Cells-Urine 0 SEEN /hpf (0-5)
[2021-11-05 10:01] LABS: Color, Urine Yellow (Yellow); Glucose, Dipstick Normal (Normal); Ketone-Dipstick Negative (Negative); Leukocyte Esterase-Dipstick 500 /ul (Negative); Nitrite-Dipstick Negative (Negative); Occult Blood-Urine Negative /ul (Negative); Protein-Dipstick Negative (Negative); Specific Gravity, Urine 1.005 (1.002-1.030); Urine Bilirubin Dipstick Negative (Negative); Urine Clarity Clear (Clear); Urine Urobilinogen Normal (Normal)
[2021-11-05 10:05] LABS: Absolute Lymphocyte Count 1.35 X10^3/uL (0.83-4.51); Absolute Neutrophil Count 4.3 X10^3/uL (2.0-7.7); Basophil# 0.06 X10^3/uL; Basophil% 0.9 % (0-1); Eosinophil# 0.13 X10^3/uL; Hematocrit 42.8 % (37-47); Hemoglobin 14.1 g/dL (12.0-15.0); Lymphocyte # 1.35 X10^3/ul (0.83-4.51); Lymphocyte % 20.9 % (19-41); Mean Corp Hgb Conc 32.9 g/dL (32-36); Mean Corpuscular Hgb 30.6 pg (27.0-32.0); Mean Corpuscular Volume 92.8 fL (81-99); Mean Platelet Vol. 10.4 fl (6.2-12.0); Monocyte# 0.54 X10^3/uL; Monocyte% 8.4 % (0-10); NRBC Flagged by Analyzer 0 % (0-5); Neutrophil # 4.34 X10^3/uL (2.7-7.7); Neutrophil % 67.3 % (47-70); Platelet Count 192 K/mm3 (150-450); RBC Distribution Width SD 47.8 fl (35.1-43.9); Red Blood Count 4.61 M/mm3 (4.2-5.4); White Blood Count 6.5 K/mm3 (4.4-11.0)
[2021-11-05 10:17] LABS: Bacteria 1+ /hpf (None Seen); Squamous Epithelial Cells - UA 0-5 SEEN /hpf (5-10); White Blood Cells 0-5 SEEN /hpf (0-5)
[2021-11-05 10:22] LABS: ALB/GLOB Ratio 1.1 RATIO (0.9-2.4); AST(SGOT) 15 U/L (15-37); Alanine Aminotransfer ALT/SGPT 27 U/L (13-56); Albumin, Serum 3.7 g/dL (3.2-5.0); Alkaline Phosphatase 74 U/L (45-117); Anion Gap 6 (5-15); BUN 15 mg/dL (7-18); Calcium,Total 8.5 mg/dL (8.5-10.1); Chloride 104 mmol/L (98-107); Creatinine, Serum 0.94 mg/dL (0.55-1.02); EST Glomerular Filtration Rate 62 mL/min (>60); Est Glom Filt Rate - Afr Amer 75 mL/min (>60); Globulin 3.5 g/dL (2.2-4.2); Glucose 97 mg/dL (74-106); PTHIN 50.4 pg/mL (18.4-80.1); Potassium 3.5 mmol/L (3.5-5.1); Protein, Total 7.2 g/dL (6.4-8.2); Sodium Level 140 mmol/L (136-145)
== END | disposition home or self-care (01) ==
LOC: MFPLAB 08:33
PROVIDERS: PCP Family Medicine; Visit Provider Family Medicine
DX: I10 Essential (primary) hypertension (principal); E55.9 Vitamin D deficiency, unspecified; E83.52 Hypercalcemia
CPT/HCPCS: 36415; 80053; 81001; 82306; 83970; 85025

== ENCOUNTER → 2022-02-04 | Outpatient (CLI) | payer MEDICARE, SELFPAY ==
[2022-02-04 08:33] LABS: Mucous, Urine 0 SEEN /hpf (<or=2+); Red Blood Cells-Urine 0 SEEN /hpf (0-5)
[2022-02-04 10:05] LABS: Absolute Neutrophil Count 4.1 X10^3/uL (2.0-7.7); Basophil# 0.06 X10^3/uL; Eosinophil# 0.13 X10^3/uL; Eosinophils% 2.1 % (0-5); Hematocrit 42.5 % (37-47); Hemoglobin 13.9 g/dL (12.0-15.0); Lymphocyte % 22.8 % (19-41); Mean Corp Hgb Conc 32.7 g/dL (32-36); Mean Corpuscular Hgb 30.3 pg (27.0-32.0); Mean Corpuscular Volume 92.6 fL (81-99); Mean Platelet Vol. 10.5 fl (6.2-12.0); Monocyte# 0.46 X10^3/uL; Monocyte% 7.5 % (0-10); NRBC Flagged by Analyzer 0 % (0-5); Neutrophil # 4.09 X10^3/uL (2.7-7.7); Neutrophil % 66.4 % (47-70); Platelet Count 168 K/mm3 (150-450); RBC Distribution Width CV 14.2 % (11.6-14.6); RBC Distribution Width SD 47.9 fl (35.1-43.9); Red Blood Count 4.59 M/mm3 (4.2-5.4); White Blood Count 6.2 K/mm3 (4.4-11.0)
[2022-02-04 10:19] LABS: Color, Urine Yellow (Yellow); Glucose, Dipstick Normal (Normal); Ketone-Dipstick Negative (Negative); Leukocyte Esterase-Dipstick 25 /ul (Negative); Nitrite-Dipstick Negative (Negative); Occult Blood-Urine Negative /ul (Negative); Protein-Dipstick Negative (Negative); Specific Gravity, Urine 1.005 (1.002-1.030); Urine Bilirubin Dipstick Negative (Negative); Urine Clarity Clear (Clear); Urine Urobilinogen 1 mg/dl (Normal)
[2022-02-04 10:21] LABS: ALB/GLOB Ratio 1.1 RATIO (0.9-2.4); AST(SGOT) 9 U/L (15-37); Alanine Aminotransfer ALT/SGPT 24 U/L (13-56); Albumin, Serum 3.6 g/dL (3.2-5.0); Alkaline Phosphatase 83 U/L (45-117); Anion Gap 7 (5-15); BUN 15 mg/dL (7-18); BUN/Creat Ratio 16.3 RATIO (10-20); Calcium,Total 8.3 mg/dL (8.5-10.1); Chloride 104 mmol/L (98-107); Cholesterol 137 mg/dL (200); Creatinine, Serum 0.92 mg/dL (0.55-1.02); EST Glomerular Filtration Rate 63 mL/min (>60); Est Glom Filt Rate - Afr Amer 77 mL/min (>60); Globulin 3.3 g/dL (2.2-4.2); Glucose 103 mg/dL (74-106); High Density Lipoprotein 39 mg/dL; Potassium 3.5 mmol/L (3.5-5.1); Protein, Total 6.9 g/dL (6.4-8.2); Sodium Level 142 mmol/L (136-145); Triglycerides 143 mg/dL; Very Low Density Lipoprotein 29 mg/dL (5-40)
[2022-02-04 10:28] LABS: PTHIN 41.9 pg/mL (18.4-80.1)
[2022-02-04 10:48] LABS: Bacteria 1+ /hpf (None Seen); Squamous Epithelial Cells - UA 0-5 SEEN /hpf (5-10); White Blood Cells 0-5 SEEN /hpf (0-5)
[2022-02-04 15:09] LABS: Hemoglobin A1c 5.6 % (3.8-5.6)
== END | disposition home or self-care (01) ==
LOC: MFPLAB 08:32
PROVIDERS: PCP Family Medicine; Visit Provider Family Medicine
DX: R73.09 Other abnormal glucose (principal); M85.80 Other specified disorders of bone density and structure, unspecified site; E78.00 Pure hypercholesterolemia, unspecified; I10 Essential (primary) hypertension
CPT/HCPCS: 80053; 80061; 81001; 82306; 83036; 83970; 85025

== ENCOUNTER → 2022-03-28 | Outpatient (CLI) | payer MEDICARE, SELFPAY ==
--- NOTE | 2022-03-28 12:25 | BI_ITS ---
MAMMOGRAPHY - BILATERAL SCREENING REASON FOR EXAM: Female, 76 years old. Routine annual screening examination. PERTINENT HISTORY: Mother with breast cancer. TECHNIQUE: Digital bilateral breast andrea (3D mammographic acquisition) in the CC and MLO projections. 2-D mediolateral oblique (MLO) and craniocaudad (CC) views of both breasts were obtained. CAD: Full Field Digital Mammography with Computer Added Detection was performed. COMPARISON: Comparison is made with prior examination dated 03/22/2021 and 03/17/2020. FINDINGS: Breast Composition: There are scattered areas of fibroglandular density. There are no dominant masses or suspicious calcifications. Stable small benign appearing bilateral axillary lymph nodes. No other significant abnormalities are identified. There has been no significant change since the prior study. BI/SCRN MAMM (CAD)W/ANDREA BILAT IMPRESSION: Stable bilateral screening mammogram. Yearly follow-up mammogram recommended. (A) ASSESSMENT CATEGORY: BIRADS Category 2: Benign. A letter regarding these results will be sent to the patient by the facility within 30 days. Approximately 10% of breast cancers are not detected by mammography. A normal mammogram should not delay biopsy of a clinically suspicious abnormality. [id number] Electronically Signed: Dariusz Saenz MD at 13:14 EDT ,
== END | disposition home or self-care (01) ==
LOC: OPBI 12:22
PROVIDERS: PCP Family Medicine; Visit Provider Obstetrics & Gynecology
DX: Z12.31 Encounter for screening mammogram for malignant neoplasm of breast (principal)
CPT/HCPCS: 77063; 77067

== ENCOUNTER → 2022-06-24 | Outpatient (CLI) | payer MEDICARE, SELFPAY ==
[2022-06-24 11:25] LABS: Bacteria 0 SEEN /hpf (None Seen); Mucous, Urine 0 SEEN /hpf (<or=2+); Red Blood Cells-Urine 0 SEEN /hpf (0-5)
[2022-06-24 12:05] LABS: Absolute Lymphocyte Count 1.33 X10^3/uL (0.83-4.51); Absolute Neutrophil Count 6.1 X10^3/uL (2.0-7.7); Basophil# 0.06 X10^3/uL; Basophil% 0.7 % (0-1); Eosinophil# 0.11 X10^3/uL; Eosinophils% 1.3 % (0-5); Hematocrit 43.8 % (37-47); Hemoglobin 14.3 g/dL (12.0-15.0); Lymphocyte # 1.33 X10^3/ul (0.83-4.51); Lymphocyte % 16.3 % (19-41); Mean Corp Hgb Conc 32.6 g/dL (32-36); Mean Corpuscular Hgb 30.2 pg (27.0-32.0); Mean Corpuscular Volume 92.4 fL (81-99); Mean Platelet Vol. 10.4 fl (6.2-12.0); Monocyte# 0.52 X10^3/uL; Monocyte% 6.4 % (0-10); NRBC Flagged by Analyzer 0 % (0-5); Neutrophil # 6.13 X10^3/uL (2.7-7.7); Neutrophil % 75.1 % (47-70); Platelet Count 185 K/mm3 (150-450); RBC Distribution Width CV 13.5 % (11.6-14.6); RBC Distribution Width SD 46.5 fl (35.1-43.9); Red Blood Count 4.74 M/mm3 (4.2-5.4); White Blood Count 8.2 K/mm3 (4.4-11.0)
[2022-06-24 12:23] LABS: Color, Urine Yellow (Yellow); Glucose, Dipstick Normal (Normal); Ketone-Dipstick Negative (Negative); Leukocyte Esterase-Dipstick 25 /ul (Negative); Nitrite-Dipstick Negative (Negative); Occult Blood-Urine Negative /ul (Negative); Protein-Dipstick Negative (Negative); Urine Bilirubin Dipstick Negative (Negative); Urine Clarity Clear (Clear); Urine Urobilinogen Normal (Normal)
[2022-06-24 12:33] LABS: Vitamin D,25 Hydroxy 40.5 ng/mL
[2022-06-24 12:40] LABS: PTHIN 42.6 pg/mL (18.4-80.1)
[2022-06-24 12:50] LABS: ALB/GLOB Ratio 1.3 RATIO (0.9-2.4); AST(SGOT) 11 U/L (15-37); Alanine Aminotransfer ALT/SGPT 25 U/L (13-56); Albumin, Serum 3.9 g/dL (3.2-5.0); Alkaline Phosphatase 88 U/L (45-117); Anion Gap 7 (5-15); BUN 18 mg/dL (7-18); BUN/Creat Ratio 21.1 RATIO (10-20); Calcium,Total 8.8 mg/dL (8.5-10.1); Chloride 101 mmol/L (98-107); Cholesterol 154 mg/dL (200); Creatinine, Serum 0.86 mg/dL (0.55-1.02); EST Glomerular Filtration Rate 69 mL/min (>60); Est Glom Filt Rate - Afr Amer 83 mL/min (>60); Globulin 3.1 g/dL (2.2-4.2); Glucose 97 mg/dL (74-106); High Density Lipoprotein 40 mg/dL; Magnesium 2.2 mg/dL (1.6-2.6); Potassium 3.5 mmol/L (3.5-5.1); Sodium Level 140 mmol/L (136-145); Squamous Epithelial Cells - UA 0-5 SEEN /hpf (5-10); Thyroid Stim Hormone (TSH) 2.27 uIU/mL (0.358-3.74); Triglycerides 255 mg/dL; Very Low Density Lipoprotein 51 mg/dL (5-40); White Blood Cells 0-5 SEEN /hpf (0-5)
== END | disposition home or self-care (01) ==
LOC: MFPLAB 11:22
PROVIDERS: PCP Family Medicine; Referring Provider Family Medicine; Visit Provider Family Medicine
DX: I10 Essential (primary) hypertension (principal); E55.9 Vitamin D deficiency, unspecified; E78.00 Pure hypercholesterolemia, unspecified
CPT/HCPCS: 36415; 80053; 80061; 81001; 82306; 83735; 83970; 84443; 85025

== ENCOUNTER → 2022-06-28 | Outpatient (CLI) | payer MEDICARE, SELFPAY ==
--- NOTE | 2022-06-28 11:38 | US_ITS ---
EXAM: US SOFT TISSUES HEAD AND NECK, THYROID CLINICAL INDICATION: NODULE -- parathyroid removed since previous TECHNIQUE: Greyscale and color doppler imaging was performed of the thyroid gland. This report was created using [employer] technology. COMPARISON: None. FINDINGS: LEFT THYROID LOBE: The left lobe measures 3.3 x 1.4 x 0.7 cm. Several tiny nodules. Largest nodule upper pole left lobe of the thyroid measures 4 x 4 x 3 mm, is solid, smoothly marginated, hypoechoic, wider than tall, with no echogenic foci. RIGHT THYROID LOBE: The right lobe measures 4.4 x 1.3 x 1 cm. Several tiny nodules. Largest nodule upper pole right lobe of the thyroid measures 5 x 4 x 2 mm, is solid, hypoechoic, taller than wide, smoothly marginated with no echogenic foci. ISTHMUS: The isthmus measures 3 mm. No thyroid nodules are present. US/Thyroid IMPRESSION: Bilateral thyroid nodules. RECOMMENDATIONS: 1. Nodule upper pole right lobe of the thyroid measures 5 x 4 x 2 mm, is solid, hypoechoic, taller than wide, smoothly marginated with no echogenic foci. TI-RADS points: 7. TI-RADS category: TR5. This nodule is highly suspicious but no FNA or follow-up is necessary given the small size of this nodule. 2. Nodule upper pole left lobe of the thyroid measures 4 x 4 x 3 mm, is solid, smoothly marginated, hypoechoic, wider than tall, with no echogenic foci. TI-RADS points: 4. TI-RADS category: TR4. This nodule is moderately suspicious but no FNA or follow-up is necessary given the small size of this nodule. Electronically Signed: Avery Reed MD at 3:47 EST ,
== END | disposition home or self-care (01) ==
PROVIDERS: PCP Family Medicine; Visit Provider Family Medicine
DX: E04.2 Nontoxic multinodular goiter (principal)
CPT/HCPCS: 76536

== ENCOUNTER → 2022-12-14 | Outpatient (CLI) | payer MEDICARE, SELFPAY ==
[2022-12-14 08:19] LABS: Mucous, Urine 0 SEEN /hpf (<or=2+); Red Blood Cells-Urine 0 SEEN /hpf (0-5)
[2022-12-14 10:13] LABS: Absolute Lymphocyte Count 1.57 X10^3/uL (0.83-4.51); Absolute Neutrophil Count 3.8 X10^3/uL (2.0-7.7); Basophil# 0.06 X10^3/uL; Eosinophil# 0.13 X10^3/uL; Eosinophils% 2.2 % (0-5); Hematocrit 41.7 % (37-47); Hemoglobin 13.7 g/dL (12.0-15.0); Lymphocyte # 1.57 X10^3/ul (0.83-4.51); Mean Corp Hgb Conc 32.9 g/dL (32-36); Mean Corpuscular Hgb 30.5 pg (27.0-32.0); Mean Corpuscular Volume 92.9 fL (81-99); Mean Platelet Vol. 11.5 fl (6.2-12.0); Monocyte# 0.45 X10^3/uL; Monocyte% 7.5 % (0-10); NRBC Flagged by Analyzer 0 % (0-5); Platelet Count 172 K/mm3 (150-450); RBC Distribution Width CV 14.1 % (11.6-14.6); RBC Distribution Width SD 48.1 fl (35.1-43.9); Red Blood Count 4.49 M/mm3 (4.2-5.4)
[2022-12-14 10:21] LABS: Color, Urine Yellow (Yellow); Glucose, Dipstick Normal (Normal); Ketone-Dipstick Negative (Negative); Leukocyte Esterase-Dipstick 100 /ul (Negative); Nitrite-Dipstick Negative (Negative); Occult Blood-Urine Negative /ul (Negative); Protein-Dipstick Negative (Negative); Urine Bilirubin Dipstick Negative (Negative); Urine Clarity Sl. Cloudy (Clear); Urine Urobilinogen 1 mg/dl (Normal)
[2022-12-14 10:38] LABS: Vitamin D,25 Hydroxy 53.2 ng/mL
[2022-12-14 10:46] LABS: Bacteria RARE /hpf (None Seen); Squamous Epithelial Cells - UA 5-10 SEEN /hpf (5-10); White Blood Cells 0-5 SEEN /hpf (0-5)
[2022-12-14 10:55] LABS: ALB/GLOB Ratio 1.1 RATIO (0.9-2.4); AST(SGOT) 15 U/L (15-37); Alanine Aminotransfer ALT/SGPT 22 U/L (13-56); Albumin, Serum 3.6 g/dL (3.2-5.0); Alkaline Phosphatase 73 U/L (45-117); Anion Gap 5 (5-15); BUN 14 mg/dL (7-18); BUN/Creat Ratio 14.4 RATIO (10-20); Calcium,Total 8.2 mg/dL (8.5-10.1); Chloride 106 mmol/L (98-107); Cholesterol 130 mg/dL (200); Creatinine, Serum 0.97 mg/dL (0.55-1.02); EST Glomerular Filtration Rate 59 mL/min (>60); Est Glom Filt Rate - Afr Amer 72 mL/min (>60); Globulin 3.2 g/dL (2.2-4.2); Glucose 97 mg/dL (74-106); High Density Lipoprotein 42 mg/dL; Potassium 3.5 mmol/L (3.5-5.1); Protein, Total 6.8 g/dL (6.4-8.2); Sodium Level 140 mmol/L (136-145); Triglycerides 156 mg/dL; Very Low Density Lipoprotein 31 mg/dL (5-40)
== END | disposition home or self-care (01) ==
LOC: MFPLAB 08:17
PROVIDERS: PCP Family Medicine; Visit Provider Family Medicine
DX: I10 Essential (primary) hypertension (principal); E55.9 Vitamin D deficiency, unspecified; E78.00 Pure hypercholesterolemia, unspecified
CPT/HCPCS: 36415; 80053; 80061; 81001; 82306; 85025

== ENCOUNTER → 2022-12-28 | Outpatient (CLI) | payer MEDICARE, SELFPAY ==
[2022-12-28 13:42] LABS: Anion Gap 7 (5-15); BUN 14 mg/dL (7-18); BUN/Creat Ratio 15.5 RATIO (10-20); Calcium,Total 8.5 mg/dL (8.5-10.1); Chloride 106 mmol/L (98-107); EST Glomerular Filtration Rate 65 mL/min (>60); Est Glom Filt Rate - Afr Amer 78 mL/min (>60); Glucose 79 mg/dL (74-106); Potassium 3.6 mmol/L (3.5-5.1); Sodium Level 142 mmol/L (136-145)
== END | disposition home or self-care (01) ==
LOC: MFPLAB 10:20
PROVIDERS: PCP Family Medicine; Visit Provider Family Medicine
DX: R94.4 Abnormal results of kidney function studies (principal)
CPT/HCPCS: 36415; 80048

== ENCOUNTER → 2023-03-30 | Outpatient (CLI) | payer MEDICARE, SELFPAY ==
--- NOTE | 2023-03-30 09:53 | BI_ITS ---
MAMMOGRAPHY - BILATERAL SCREENING REASON FOR EXAM: Female, 77 years old. Routine annual screening examination. PERTINENT HISTORY: Mother with breast cancer. TECHNIQUE: Digital bilateral breast andrea (3D mammographic acquisition) in the CC and MLO projections. 2-D mediolateral oblique (MLO) and craniocaudad (CC) views of both breasts were obtained. CAD: Full Field Digital Mammography with Computer Added Detection was performed. COMPARISON: Comparison is made with prior study March 28, 2022 and March 22, 2021. FINDINGS: Breast Composition: There are scattered areas of fibroglandular density. There are no dominant masses or suspicious calcifications. Stable fat-containing bilateral axillary lymph nodes. No other significant abnormalities are identified. There has been no significant change since the prior study. BI/SCRN MAMM (CAD)W/ANDREA BILAT IMPRESSION: Stable bilateral screening mammogram. Yearly follow-up mammogram recommended. (A) ASSESSMENT CATEGORY: BIRADS Category 2: Benign. A letter regarding these results will be sent to the patient by the facility within 30 days. Approximately 10% of breast cancers are not detected by mammography. A normal mammogram should not delay biopsy of a clinically suspicious abnormality. [id number] Electronically Signed: Dariusz Saenz MD at 12:30 EDT ,
--- NOTE | 2023-03-30 09:57 | BD_ITS ---
STUDY: DUAL ENERGY X-RAY ABSORPTIOMETRY / DXA REASON FOR EXAM: Female, 77 years old. 733.90OsteopeniaBONE DENSITY REASON FOR EXAM TECHNIQUE: Bone Mineral Density (BMD) measurements of lumbar spine and bilateral hips were obtained. COMPARISON: Comparison is made with prior study dated April 02, 2020. FINDINGS: Lumbar Spine (L1-L4): g/cm2 (0.982) / T-score (-0.6) / Z-score (1.8) Findings are suggestive of normal bone density with a low fracture risk. Left Femur Total: g/cm2 (0.828) / T-score (-0.9) / Z-score (0.9) Left Femoral Neck: g/cm2 (0.610) / T-score (-2.2) / Z-score (-0.1) Right Femur Total: g/cm2 (0.918) / T-score (-0.2) / Z-score (1.6) Right Femoral Neck: g/cm2 (0.694) / T-score (-1.4) / Z-score (0.7) The T-Scores on the most recent prior examination were: Lumbar Spine (L1-L4): There has been worsening of bone density since the previous examination. Left Femur Total: which represents a worsening of 2.8. Right Femur Total: which represents an improvement of 1.8%. BD/Dexa Bone Density Study IMPRESSION: The patient is considered osteopenic as outlined below according to World [employer] Organization (WHO) criteria with a high fracture risk. There has been worsening of bone density since the previous examination. Reference Information: The T-score is the number of standard deviations above or below the standard which is normal for young adults at their peak bone mineral density. The World Health Organization (WHO) interprets the T-scores as follows: Above -1 Normal bone density Between -1 and -2.5 Osteopenia Equal to / or below -2.5 Osteoporosis As a practical clinical guideline, osteopenia may be graded as follows: Mild -1 through -1.5 Moderate -1.6 through -2.0 Severe -2.1 through -2.4 The Z-score is the number of standard deviations above or below age-matched controls. A Z-score of less than -1.5 would be considered abnormal. References: 1. NIH Osteoporosis and Related Bone Diseases www osteo.org 2. International Society for Clinical Densitometry www iscd.org 3. National Osteoporosis Foundation www nof.org Electronically Signed: Dariusz Saenz MD at 15:20 EDT ,
== END | disposition home or self-care (01) ==
PROVIDERS: PCP Family Medicine; Referring Provider Obstetrics & Gynecology; Visit Provider Family Medicine
DX: Z12.31 Encounter for screening mammogram for malignant neoplasm of breast (principal); M81.0 Age-related osteoporosis without current pathological fracture
CPT/HCPCS: 77063; 77067; 77080

== ENCOUNTER → 2023-06-22 | Outpatient (CLI) | payer MEDICARE, SELFPAY ==
[2023-06-22 12:15] LABS: Bacteria 0 SEEN /hpf (None Seen); Mucous, Urine 0 SEEN /hpf (<or=2+); Red Blood Cells-Urine 0 SEEN /hpf (0-5)
--- OUTSIDE RECORDS SUMMARY | 2023-06-22 12:33 | XMS RPT_ITS | CCD ---
Author Name Unknown Address [address] [place] [address] Organization [facility] Care Team Providers Care Project Assistant Name Role Phone Mukul THOMAS, Virginia Riggins Unavailable [phone] Jack RN, Park Torres Unavailable UnavailSENG Olmedo Referring Unavailable SENG GONSALES Attending Unavailable SENG LEWIS Primary Care Unavailable SENG LEWIS Primary Care Unavailable SENG LEWIS Referring Unavailable SENG GONSALES Attending Unavailable SENG LEWIS Referring Unavailable SENG LEWIS Primary Care Unavailable SENG GONSALES Attending Unavailable SENG LEWIS Referring Unavailable SENG GONSALES Admitting Unavailable SENG GONSALES Attending Unavailable SENG LEWIS Primary Care Unavailable SENG GONSALES Referring Unavailable SENG GONSALES Admitting Unavailable SENG LEWIS Primary Care Unavailable SENG GONSALES Attending Unavailable SENG GONSALES Referring Unavailable SENG LEWIS Primary Care Unavailable SENG LEWIS Primary Care Unavailable FLASH LOONEY Attending Unavailable FLASH LOONEY Referring Unavailable LUI MARIN Referring Unavailable SENG LEWIS Primary Care Unavailable FLASH LOONEY Attending Unavailable SENG LEWIS Primary Care Unavailable Allergies Allergy Classification Reported Allergen(s) Allergy Type Date of Onset Reaction(s) Facility (2 sources) codeine drug allergy 4 GI upset [facility] (2 sources) nitroglycerin; Translations: [TRANSDERM NITRO PATCH] food allergy 4 blurred vision [facility] Medications Completed/Discontinued Medications Medication Drug Class(es) Dates Sig (Normalized) Sig (Original) aspirin 81 mg oral tablet (3 sources) Nonsteroidal Anti-inflammatory Drug Start: 01-28-2014 End: 02-17-2017 take 1 tablet by mouth once daily ASPIRIN 81 MG TABS One tablet by mouth daily ASPIRIN [id number] Joanie Michaud RN Problems Active Problems Problem Classification Problem Date Documented Da te Episodic/Chronic Menopausal disorders (1 source) Atrophy of vagina; Translations: [Postmenopausal atrophic vaginitis] Onset: 02-17-2017 02-17-2017 Chronic Residual codes; unclassified (1 source) Menopause present; Translations: [Menopausal and female climacteric states] Onset: 02-17-2017 02-17-2017 Chronic Unclassified (1 source) Screening for malignant neoplasm of breast ; Translations: [Encounter for other screening for malignant neoplasm of breast] Onset: 12-22-2016 12-22-2016 Past or Other Problems Problem Classification Problem Date Documented Da te Episodic/Chronic Nonspecific chest pain (2 sources) Chest pain, unspecified; Translations: [Chest pain, unspecified] Onset: 01-27-2014 01-27-2014 Episodic Other bone disease and musculoskeletal deformities (1 source) Osteopenia; Translations: [Other specified disorders of bone density and structure, unspecified site] Onset: 02-17-2017 02-17-2017 Episodic Other circulatory disease (2 sources) Cardiovascular stress test abnormal; Translations: [Abnormal result of other cardiovascular function study] Onset: 01-27-2014 01-27-2014 Episodic Other nutritional; endocrine; and metabolic disorders (2 sources) Body mass index (BMI) 29.0-29.9, adult; Translations: [Body mass index (BMI) 29.0-29.9, adult] Onset: 01-28-2014 01-28-2014 Episodic Results Test Name Value Interpretation Reference Range Facil ity Vital Signs Date Time Vital Sign Value Performing Clinician Faci lity 02-17-2017 10: BMI (Body Mass Index) 29.03 kg/m2 Park Jack RN RN [facility] Work Phone: 02-17-2017 10: Body Temperature 96.7 [degF] Park Jack RN RN [facility] Work Phone: 02-17-2017 10:040 Body Temperature 96.69 [degF] Park Jack RN RN [facility] Work Phone: 02-17-2017 10:09-0400 BP Diastolic 83 mm[Hg] Park Jack RN RN [facility] Work Phone: 02-17-2017 10:09-0400 BP Systolic 145 mm[Hg] Park Jack RN RN [facility] Work Phone: 02-17-2017 10:090400 Height 163.83 cm Park Jack RN RN [facility] Work Phone: 02-17-2017 10:09-0400 Pulse (Heart Rate) 56 /min Park Jack RN RN [facility] Work Phone: 02-17-2017 10:0400 Respiratory Rate 16 /min Park Jack RN RN [facility] Work Phone: 02-17-2017 10:090400 Weight 77.93 kg Park Jack RN RN [facility] Work Phone: 01-28-2014 10:49-0400 BMI (Body Mass Index) 29.38 kg/m2 Virginia Gilman MD [facility] 01-28-2014 10:49-0400 BP Diastolic 80 mm[Hg] Virginia Gilman MD [facility] 01-28-2014 10:49-0400 BP Systolic 120 mm[Hg] Virginia Gilman MD [facility] 01-28-2014 10:49-0400 Height 165.1 cm Virginia Gilman MD [facility] 01-28-2014 10:49-0400 Pulse (Heart Rate) 80 /min Virginia Gilman MD [facility] 01-28-2014 10:49-0400 Respiratory Rate 20 /min Virginia Gilman MD [facility] 01-28-2014 10:49-0400 Weight 80.11 kg Virginia Gilman MD [facility] Encounters Encounter Date Encounter Type Care Provider Facility Start: 06-22-2021 ambulatory SENG LEWIS Facility: [facility] Start: 06-11-2021 End: 06-11-2021 ambulatory SENG LEWIS Facility:[facility] Start: 06-07-2021 ambulatory SENG GONSALES Facility:[facility] Start: 05-17-2021 ambulatory SENG LEWIS Facility: [facility] Start: 04-27-2021 ambulatory SENG LEWIS Facility: [facility] Start: 04-27-2021 ambulatory SENG LEWIS Facility: [facility] Procedures Date Procedure Procedure Detail Performing Clinician Start: 02-17-2017 Gynecologic examination Encounter for gynecological examination (general) (routine) with abnormal findings Park Jack RN RN Start: 02-17-2017 Screening mammography Screening mammogram for breast cancer Park Jack RN RN Start: 12-22-2016 Screening for malignant neoplasm of breast Screening for breast cancer Park Jack RN RN Start: 01-28-2014 End: 01-30-2014 *BMP Long Morrissey MD Start: 01-28-2014 End: 01-30-2014 Chest x-ray Long Morrissey MD Start: 01-28-2014 End: 02-05-2014 Left Heart Cath Long Morrissey MD Plan of Treatment Date Care Activity Detail Author Start: 02-17-2017 End: 02-17-2017 Appointment Appointment [facility] Start: 02-17-2017 End: 02-17-2017 Dxa bone density study 1/> sites axial skel Dexa Scan [facility] Work Phone: Start: 12-22-2016 End: 12-22-2016 Mammogram, screening Mammogram-Bilateral, Screening, Bilateral [facility] Start: 01-28-2014 End: 01-30-2014 *BMP *BMP [facility] Start: 01-28-2014 End: 01-30-2014 Chest x-ray X-Ray, Chest, PA & Lateral [facility] Start: 01-28-2014 End: 01-28-2014 Left Heart Cath Left Heart Cath [facility] Payers Date Payer Category Payer Medicare [id number] 2020 Medicare [id number] 1945 Unknown [id number] 2.16. [id number] 1945 Unknown [id number] 2.16. [id number] 1945 Unknown [id number] 2.16. [id number] 1945 Unknown [id number] 2.16. [id number] 1945 Unknown [id number] 2.16. [id number] 1945 Unknown [id number] 2.16. [id number] 1945 Unknown [id number] 2.16. [id number] 1945 Unknown [id number] 2.16. [id number] 1945 Unknown [id number] 2.16. [id number] Summary Purpose Family History No Family History Records Found Advance Directives No Advanced Directives Records Found Additional Source Comments INFORMATION SOURCE (unrecogn ized section and content) FOR RECORDS PERTAINING TO PATIENTS WHO ARE OR HAVE BEEN ENROLLED IN A CHEMICAL DEPENDENCY/SUBSTANCEABUSE PROGRAM, SOME INFORMATION MAY BE OMITTED. This clinical summary was aggregated from multiple sources. Caution should be exercised in using it in the provision of clinical care. This summary normalizes information from multiple sources, and as a consequence, information in this document may materially change the coding, format and clinical context of patient data. In addition, data may be omitted in some cases. CLINICAL DECISIONS SHOULD BE BASED ON THE PRIMARY CLINICAL RECORDS. [facility] [employer] [facility]. provides no warranty or guarantee of the accuracy or completeness of information in this document.
[2023-06-22 15:26] LABS: Color, Urine Yellow (Yellow); Glucose, Dipstick Normal (Normal); Ketone-Dipstick Negative (Negative); Leukocyte Esterase-Dipstick 100 /ul (Negative); Nitrite-Dipstick Negative (Negative); Occult Blood-Urine Negative /ul (Negative); Protein-Dipstick Negative (Negative); Urine Bilirubin Dipstick Negative (Negative); Urine Clarity Clear (Clear); Urine Urobilinogen 1 mg/dl (Normal)
[2023-06-22 15:34] LABS: Squamous Epithelial Cells - UA 0-5 SEEN /hpf (5-10); White Blood Cells 0-5 SEEN /hpf (0-5)
[2023-06-22 15:47] LABS: Absolute Lymphocyte Count 1.23 X10^3/uL (0.83-4.51); Absolute Neutrophil Count 5.5 X10^3/uL (2.0-7.7); Basophil# 0.05 X10^3/uL; Basophil% 0.7 % (0-1); Eosinophil# 0.11 X10^3/uL; Eosinophils% 1.5 % (0-5); Hematocrit 44.9 % (37-47); Hemoglobin 14.4 g/dL (12.0-15.0); Lymphocyte # 1.23 X10^3/ul (0.83-4.51); Mean Corp Hgb Conc 32.1 g/dL (32-36); Mean Corpuscular Hgb 30.1 pg (27.0-32.0); Mean Corpuscular Volume 93.7 fL (81-99); Mean Platelet Vol. 10.9 fl (6.2-12.0); Monocyte# 0.34 X10^3/uL; Monocyte% 4.7 % (0-10); NRBC Flagged by Analyzer 0 % (0-5); Neutrophil # 5.47 X10^3/uL (2.7-7.7); Neutrophil % 75.7 % (47-70); Platelet Count 193 K/mm3 (150-450); RBC Distribution Width CV 14.2 % (11.6-14.6); RBC Distribution Width SD 48.7 fl (35.1-43.9); Red Blood Count 4.79 M/mm3 (4.2-5.4); White Blood Count 7.2 K/mm3 (4.4-11.0)
[2023-06-22 16:34] LABS: Vitamin D,25 Hydroxy 49.9 ng/mL
[2023-06-22 17:05] LABS: ALB/GLOB Ratio 1.3 RATIO (0.9-2.4); AST(SGOT) 22 U/L (15-37); Alanine Aminotransfer ALT/SGPT 26 U/L (13-56); Albumin, Serum 4.1 g/dL (3.2-5.0); Alkaline Phosphatase 76 U/L (45-117); Anion Gap 8 (5-15); BUN 15 mg/dL (7-18); BUN/Creat Ratio 17.6 RATIO (10-20); Calcium,Total 8.8 mg/dL (8.5-10.1); Chloride 105 mmol/L (98-107); Cholesterol 145 mg/dL (200); Creatinine, Serum 0.85 mg/dL (0.55-1.02); EST Glomerular Filtration Rate 69 mL/min (>60); Est Glom Filt Rate - Afr Amer 83 mL/min (>60); Globulin 3.2 g/dL (2.2-4.2); Glucose 115 mg/dL (74-106); High Density Lipoprotein 45 mg/dL; Potassium 3.5 mmol/L (3.5-5.1); Protein, Total 7.3 g/dL (6.4-8.2); Sodium Level 142 mmol/L (136-145); Thyroid Stim Hormone (TSH) 1.71 uIU/mL (0.358-3.74); Triglycerides 178 mg/dL; Very Low Density Lipoprotein 36 mg/dL (5-40)
[2023-06-23 09:37] LABS: PTHIN 32.1 pg/mL (18.4-80.1)
== END | disposition home or self-care (01) ==
LOC: MFPLAB 12:10
PROVIDERS: PCP Family Medicine; Visit Provider Family Medicine
DX: I10 Essential (primary) hypertension (principal); E55.9 Vitamin D deficiency, unspecified
CPT/HCPCS: 36415; 80053; 80061; 81001; 82306; 83970; 84443; 85025

== ENCOUNTER → 2023-08-14 | Outpatient (CLI) | payer MEDICARE, SELFPAY ==
--- NOTE | 2023-08-14 11:54 | US_ITS ---
EXAM: US SOFT TISSUES HEAD AND NECK, THYROID CLINICAL INDICATION: nodule TECHNIQUE: Mckeon scale and color doppler imaging was performed of the thyroid gland. COMPARISON: US Thyroid dated 06/28/2022 FINDINGS: LEFT THYROID LOBE: Left thyroid lobe measures 3.3 x 1.3 x 1.0 cm. Diffusely nodular echotexture unchanged from prior study. There are multiple nodes largest one measuring 4 mm in diameter appearing solid, well-defined, wider than tall, isoechoic to mildly hypoechoic without microcalcification. TI-RADS points: 3. TI-RADS category: TR3. These nodules are mildly suspicious but no FNA or follow-up is necessary given the small size of the nodules. RIGHT THYROID LOBE: Right thyroid lobe measures 3.9 x 1.4 x 1.6 cm with similar multinodular echotexture, unchanged from prior study. No thyroid nodules are present. ISTHMUS: Normal. No thyroid nodules are present. US/Thyroid IMPRESSION: Stable multinodular goiter. Electronically Signed: Dennys Posadas MD at 13:27 EDT ,
--- OUTSIDE RECORDS SUMMARY | 2023-08-14 13:29 | XMS RPT_ITS | CCD ---
Author Name Unknown Address [address] [place] [address] Organization [facility] Care Team Providers Care Sharepoint Web Developer Name Role Phone Mukul THOMAS, Virginia Riggins Unavailable [phone] Jack RN, Park Torres Unavailable UnavailSENG [...] sources) codeine drug allergy [address] [facility] (2 sources) nitroglycerin; Translations: [TRANSDERM NITRO PATCH] food allergy [address] [facility] Medications Completed/Discontinued Medications Medication Drug Class(es) Dates Sig (Normalized) Sig (Original) aspirin 81 mg oral tablet (3 sources) Nonsteroidal Anti-inflammatory Drug Start: 01-28-2014 End: 02-17-2017 take 1 tablet by mouth once daily ASPIRIN 81 MG TABS One tablet by mouth daily ASPIRIN [id number] Joanie Michaud RN Problems Active Problems Problem [...] Index) 29.03 kg/m2 Park Jack RN RN [facility] Work Phone: 02-17-2017 10: Body Temperature 96.7 [degF] Park Jack RN RN [facility] Work Phone: 02-17-2017 10:040 Body Temperature 96.69 [degF] Park Jack RN RN [facility] Work Phone: 02-17-2017 10:09-0400 BP Diastolic 83 mm[Hg] Park Jack RN RN [facility] Work Phone: 02-17-2017 10:09-0400 BP Systolic 145 mm[Hg] Park Jack RN RN [facility] Work Phone: 02-17-2017 10:090400 Height 163.83 cm Park Jack RN RN [facility] Work Phone: 02-17-2017 10:09-0400 Pulse (Heart Rate) 56 /min Park Jack RN RN [facility] Work Phone: 02-17-2017 10:0400 Respiratory Rate 16 /min Park Jack RN RN [facility] Work Phone: 02-17-2017 10:090400 Weight 77.93 kg Park Jack RN RN [facility] Work Phone: 01-28-2014 10:49-0400 BMI (Body Mass Index) 29.38 kg/m2 Virginia Gilman MD [facility] 01-28-2014 10:49-0400 BP Diastolic 80 mm[Hg] Virginia Gilman MD [facility] 01-28-2014 10:49-0400 BP Systolic 120 mm[Hg] Virginia Gilman MD [facility] 01-28-2014 10:49-0400 Height 165.1 cm Virginia Gilman MD [facility] 01-28-2014 10:49-0400 Pulse (Heart Rate) 80 /min Virginia Gilman MD [facility] 01-28-2014 10:49-0400 Respiratory Rate 20 /min Virginia Gilman MD [facility] 01-28-2014 10:49-0400 Weight 80.11 kg Virginia Gilman MD [facility] Encounters Encounter Date Encounter Type Care Provider [...] Author Start: 02-17-2017 End: 02-17-[address] [facility] Start: 02-17-2017 End: 02-17-2017 Dxa bone density study 1/> sites axial skel Dexa Scan [facility] Work Phone: Start: 12-22-2016 End: 12-22-2016 Mammogram, screening Mammogram-Bilateral, Screening, Bilateral [facility] Start: 01-28-2014 End: 01-30-2014 *BMP *BMP [facility] Start: 01-28-2014 End: 01-30-2014 Chest x-ray X-Ray, Chest, PA & Lateral [facility] Start: 01-28-2014 End: 01-28-2014 Left Heart Cath Left Heart Cath [facility] Payers Date Payer Category Payer Medicare [id number] 2020 Medicare [id number] 1945 Unknown [id number] 2.16. [id number] 1945 Unknown [id number] 2.16. [id number] 1945 Unknown [id number] 2.16. [id number] 1945 Unknown [id number] 2.16. [id number] 1945 Unknown [id number] 2.16. [id number] 1945 Unknown [id number] 2.16. [id number] 1945 Unknown [id number] 2.16. [id number] 1945 Unknown [id number] 2.16. [id number] 1945 Unknown [id number] 2.16. [id number] Summary Purpose Family History No Family History [...] BE BASED ON THE PRIMARY CLINICAL RECORDS. [facility] [facility]. provides no warranty or guarantee of the accuracy or completeness of information in this document.
== END | disposition home or self-care (01) ==
LOC: US 11:46
PROVIDERS: PCP Family Medicine; Referring Provider Family Medicine; Visit Provider Family Medicine
DX: E04.2 Nontoxic multinodular goiter (principal)
CPT/HCPCS: 76536

== ENCOUNTER → 2023-10-10 | Outpatient (CLI) | payer MEDICARE, SELFPAY ==
[2023-10-10 09:59] LABS: Absolute Lymphocyte Count 1.45 X10^3/uL (0.83-4.51); Absolute Neutrophil Count 4.1 X10^3/uL (2.0-7.7); Basophil# 0.05 X10^3/uL; Basophil% 0.8 % (0-1); Eosinophil# 0.14 X10^3/uL; Eosinophils% 2.3 % (0-5); Hematocrit 42.4 % (37-47); Hemoglobin 13.9 g/dL (12.0-15.0); Lymphocyte # 1.45 X10^3/ul (0.83-4.51); Lymphocyte % 23.3 % (19-41); Mean Corp Hgb Conc 32.8 g/dL (32-36); Mean Corpuscular Hgb 30.3 pg (27.0-32.0); Mean Corpuscular Volume 92.6 fL (81-99); Mean Platelet Vol. 10.7 fl (6.2-12.0); NRBC Flagged by Analyzer 0 % (0-5); Neutrophil # 4.07 X10^3/uL (2.7-7.7); Neutrophil % 65.4 % (47-70); Platelet Count 173 K/mm3 (150-450); RBC Distribution Width CV 14.2 % (11.6-14.6); RBC Distribution Width SD 47.7 fl (35.1-43.9); Red Blood Count 4.58 M/mm3 (4.2-5.4); White Blood Count 6.2 K/mm3 (4.4-11.0)
[2023-10-10 10:29] LABS: Vitamin D,25 Hydroxy 48.6 ng/mL
[2023-10-10 10:30] LABS: ALB/GLOB Ratio 1.2 RATIO (0.9-2.4); AST(SGOT) 14 U/L (15-37); Alanine Aminotransfer ALT/SGPT 19 U/L (13-56); Albumin, Serum 3.8 g/dL (3.2-5.0); Alkaline Phosphatase 72 U/L (45-117); Anion Gap 6 (5-15); BUN 13 mg/dL (7-18); BUN/Creat Ratio 14.1 RATIO (10-20); Calcium,Total 8.7 mg/dL (8.5-10.1); Chloride 104 mmol/L (98-107); Cholesterol 150 mg/dL (200); Creatinine, Serum 0.92 mg/dL (0.55-1.02); EST Glomerular Filtration Rate 63 mL/min (>60); Est Glom Filt Rate - Afr Amer 77 mL/min (>60); Globulin 3.2 g/dL (2.2-4.2); Glucose 106 mg/dL (74-106); High Density Lipoprotein 38 mg/dL; Magnesium 2.1 mg/dL (1.6-2.6); Potassium 3.7 mmol/L (3.5-5.1); Sodium Level 141 mmol/L (136-145); Triglycerides 207 mg/dL; Very Low Density Lipoprotein 41 mg/dL (5-40)
== END | disposition home or self-care (01) ==
LOC: MFPLAB 08:24
PROVIDERS: PCP Family Medicine; Visit Provider Family Medicine
DX: I10 Essential (primary) hypertension (principal); E55.9 Vitamin D deficiency, unspecified
CPT/HCPCS: 36415; 80053; 80061; 82306; 83735; 85025

== ENCOUNTER → 2024-02-09 | Outpatient (CLI) | payer MEDICARE, SELFPAY ==
[2024-02-09 08:04] LABS: Mucous, Urine 0 SEEN /hpf (<or=2+); Red Blood Cells-Urine 0 SEEN /hpf (0-5)
[2024-02-09 10:43] LABS: Color, Urine Yellow (Yellow); Glucose, Dipstick Normal (Normal); Ketone-Dipstick 5 mg/dl (Negative); Leukocyte Esterase-Dipstick 500 /ul (Negative); Nitrite-Dipstick Negative (Negative); Occult Blood-Urine 10 /ul (Negative); Protein-Dipstick 30 mg/dl (Negative); Urine Clarity Clear (Clear); Urine Urobilinogen 4 mg/dl (Normal)
[2024-02-09 10:58] LABS: Vitamin D,25 Hydroxy 42.1 ng/mL
[2024-02-09 11:04] LABS: AST(SGOT) 24 U/L (15-37); Alanine Aminotransfer ALT/SGPT 32 U/L (13-56); Albumin, Serum 3.7 g/dL (3.2-5.0); Alkaline Phosphatase 81 U/L (45-117); Anion Gap 7 (5-15); BUN 13 mg/dL (7-18); BUN/Creat Ratio 14.9 RATIO (10-20); Calcium,Total 9.2 mg/dL (8.5-10.1); Chloride 104 mmol/L (98-107); Cholesterol 127 mg/dL (200); Creatinine, Serum 0.87 mg/dL (0.55-1.02); EST Glomerular Filtration Rate 67 mL/min (>60); Est Glom Filt Rate - Afr Amer 81 mL/min (>60); Globulin 3.6 g/dL (2.2-4.2); Glucose 106 mg/dL (74-106); High Density Lipoprotein 37 mg/dL; Magnesium 2.3 mg/dL (1.6-2.6); Potassium 3.4 mmol/L (3.5-5.1); Protein, Total 7.3 g/dL (6.4-8.2); Sodium Level 141 mmol/L (136-145); Triglycerides 168 mg/dL; Very Low Density Lipoprotein 34 mg/dL (5-40)
[2024-02-09 11:40] LABS: Urine Bilirubin Dipstick 1 mg/dL (Negative)
[2024-02-09 11:41] LABS: Bacteria 2+ /hpf (None Seen); Squamous Epithelial Cells - UA 5-10 SEEN /hpf (5-10); White Blood Cells 10-25 SEEN /hpf (0-5)
[2024-02-09 11:56] LABS: Absolute Lymphocyte Count 1.68 X10^3/uL (0.83-4.51); Absolute Neutrophil Count 2.4 X10^3/uL (2.0-7.7); Basophil# 0.02 X10^3/uL; Basophil% 0.4 % (0-1); Eosinophil# 0.19 X10^3/uL; Eosinophils% 4.1 % (0-5); Hematocrit 43.8 % (37-47); Hemoglobin 14.1 g/dL (12.0-15.0); Lymphocyte # 1.68 X10^3/ul (0.83-4.51); Lymphocyte % 36.1 % (19-41); Mean Corp Hgb Conc 32.2 g/dL (32-36); Mean Corpuscular Hgb 30.4 pg (27.0-32.0); Mean Corpuscular Volume 94.4 fL (81-99); Mean Platelet Vol. 10.9 fl (6.2-12.0); Monocyte# 0.37 X10^3/uL; NRBC Flagged by Analyzer 0 % (0-5); Neutrophil # 2.38 X10^3/uL (2.7-7.7); Neutrophil % 51.2 % (47-70); Platelet Count 146 K/mm3 (150-450); RBC Distribution Width CV 14.7 % (11.6-14.6); RBC Distribution Width SD 51.2 fl (35.1-43.9); Red Blood Count 4.64 M/mm3 (4.2-5.4); White Blood Count 4.7 K/mm3 (4.4-11.0)
[2024-02-13 13:06] LABS: Hemoglobin A1c 5.6 % (3.8-5.6)
== END | disposition home or self-care (01) ==
LOC: MFPLAB 08:01
PROVIDERS: PCP Family Medicine; Visit Provider Family Medicine
DX: R73.09 Other abnormal glucose (principal); E55.9 Vitamin D deficiency, unspecified; I10 Essential (primary) hypertension
CPT/HCPCS: 36415; 80053; 80061; 81001; 82306; 83036; 83735; 85025

== ENCOUNTER → 2024-04-01 | Outpatient (CLI) | payer MEDICARE, SELFPAY ==
--- NOTE | 2024-04-01 07:48 | BI_ITS ---
MAMMOGRAPHY - BILATERAL SCREENING REASON FOR EXAM: Female, 78 years old. Routine annual screening examination. PERTINENT HISTORY: Mother with breast cancer. TECHNIQUE: Digital bilateral breast andrea (3D mammographic acquisition) in the CC and MLO projections. 2-D mediolateral oblique (MLO) and craniocaudad (CC) views of both breasts were obtained. CAD: Full Field Digital Mammography with Computer Added Detection was performed. COMPARISON: Comparison is made with prior study March 30, 2023 and March 28, 2022. FINDINGS: Breast Composition: There are scattered areas of fibroglandular density. There are no dominant masses or suspicious calcifications. Stable bilateral fat containing axillary lymph nodes. No other significant abnormalities are identified. There has been no significant change since the prior study. BI/SCRN MAMM (CAD)W/ANDREA BILAT IMPRESSION: Stable bilateral screening mammogram. Yearly follow-up mammogram recommended. (A) ASSESSMENT CATEGORY: BIRADS Category 2: Benign. A letter regarding these results will be sent to the patient by the facility within 30 days. Approximately 10% of breast cancers are not detected by mammography. A normal mammogram should not delay biopsy of a clinically suspicious abnormality. [id number] Electronically Signed: Dariusz Saenz MD at 8:49 EDT ,
== END | disposition home or self-care (01) ==
LOC: OPBI 07:44
PROVIDERS: PCP Family Medicine; Referring Provider Obstetrics & Gynecology; Visit Provider Obstetrics & Gynecology
DX: Z12.31 Encounter for screening mammogram for malignant neoplasm of breast (principal)
CPT/HCPCS: 77063; 77067

== ENCOUNTER 2024-09-11 08:28 | Outpatient (CLI) | payer MEDICARE, SELFPAY ==
[2024-09-11 08:32] LABS: Mucous, Urine 0 SEEN /hpf (<or=2+); Red Blood Cells-Urine 0 SEEN /hpf (0-5); White Blood Cells 0 SEEN /hpf (0-5)
[2024-09-11 10:26] LABS: Absolute Lymphocyte Count 1.59 X10^3/uL (0.83-4.51); Absolute Neutrophil Count 4.9 X10^3/uL (2.0-7.7); Basophil# 0.06 X10^3/uL; Basophil% 0.8 % (0-1); Eosinophil# 0.15 X10^3/uL; Eosinophils% 2.1 % (0-5); Hematocrit 43.7 % (37-47); Hemoglobin 14.3 g/dL (12.0-15.0); Lymphocyte # 1.59 X10^3/ul (0.83-4.51); Lymphocyte % 22.1 % (19-41); Mean Corp Hgb Conc 32.7 g/dL (32-36); Mean Corpuscular Hgb 30.4 pg (27.0-32.0); Mean Corpuscular Volume 92.8 fL (81-99); Mean Platelet Vol. 10.8 fl (6.2-12.0); Monocyte# 0.48 X10^3/uL; Monocyte% 6.7 % (0-10); NRBC Flagged by Analyzer 0 % (0-5); Neutrophil # 4.89 X10^3/uL (2.7-7.7); Platelet Count 175 K/mm3 (150-450); RBC Distribution Width CV 13.9 % (11.6-14.6); RBC Distribution Width SD 47.5 fl (35.1-43.9); Red Blood Count 4.71 M/mm3 (4.2-5.4); White Blood Count 7.2 K/mm3 (4.4-11.0)
[2024-09-11 10:43] LABS: Hemoglobin A1c 5.6 % (<=5.6)
[2024-09-11 10:48] LABS: Color, Urine Yellow (Yellow); Glucose, Dipstick Normal (Normal); Ketone-Dipstick Negative (Negative); Leukocyte Esterase-Dipstick 100 /ul (Negative); Nitrite-Dipstick Negative (Negative); Occult Blood-Urine Negative /ul (Negative); Protein-Dipstick 15 mg/dl (Negative); Specific Gravity, Urine 1.005 (1.002-1.030); Urine Bilirubin Dipstick Negative (Negative); Urine Clarity Clear (Clear); Urine Urobilinogen 1 mg/dl (Normal)
[2024-09-11 10:56] LABS: Bacteria RARE /hpf (None Seen); Squamous Epithelial Cells - UA 5-10 SEEN /hpf (5-10)
[2024-09-11 14:54] LABS: ALB/GLOB Ratio 1.6 RATIO (0.9-2.4); AST(SGOT) 19 U/L (<=31); Alanine Aminotransfer ALT/SGPT 15 U/L (<=34); Albumin, Serum 4.2 g/dL (3.4-4.8); Alkaline Phosphatase 67 U/L (35-104); Anion Gap 12 (5-15); BUN 18 mg/dL (4-19); BUN/Creat Ratio 19.8 RATIO (10-20); Carbon Dioxide 28.6 mmol/L (21.0-32.0); Chloride 100 mmol/L (98-108); Cholesterol 154 mg/dL (<=200); Creatinine, Serum 0.89 mg/dL (0.70-1.20); EST Glomerular Filtration Rate 67 (>60); Globulin 2.7 g/dL (2.2-4.2); Glucose 103 mg/dL (70-99); High Density Lipoprotein 39 mg/dL; Low Density Lipoprotein Calc. 74 mg/dL; Magnesium 2.1 mg/dL (1.5-2.2); Potassium 3.9 mmol/L (3.3-5.1); Protein, Total 6.9 g/dL (5.9-8.4); Sodium Level 140 mmol/L (133-145); Total Bilirubin 0.89 mg/dL (0.00-1.30); Triglycerides 204 mg/dL; Very Low Density Lipoprotein 41 mg/dL (5-40); cholesterol:hdl ratio screen 3.94
[2024-09-11 15:02] LABS: Vitamin D,25 Hydroxy 28.5 ng/mL (30-100)
== END 2024-09-11 23:59 | disposition home or self-care (01) ==
LOC: MFPLAB 08:28
PROVIDERS: PCP Family Medicine; Referring Provider Family Medicine; Visit Provider Family Medicine
DX: I10 Essential (primary) hypertension (principal); R73.09 Other abnormal glucose; E55.9 Vitamin D deficiency, unspecified
CPT/HCPCS: 36415; 80053; 80061; 81001; 82306; 83036; 83735; 84443; 85025

== ENCOUNTER → 2025-01-27 | Outpatient (CLI) | payer MEDICARE, SELFPAY ==
[2025-01-27 08:41] LABS: Mucous, Urine 0 SEEN /hpf (<or=2+)
[2025-01-27 10:58] LABS: Hematocrit 40.5 % (37-47); Hemoglobin 13.1 g/dL (12.0-15.0); Immature Granulocytes Count 0.020 X10^3/uL (0.0-0.0); Mean Corp Hgb Conc 32.3 g/dL (32-36); Mean Corpuscular Volume 93.1 fL (81-99); Mean Platelet Vol. 10.6 fl (6.2-12.0); NRBC Flagged by Analyzer 0 % (0-5); Platelet Count 153 K/mm3 (150-450); RBC Distribution Width CV 14.8 % (11.6-14.6); RBC Distribution Width SD 51.0 fl (35.1-43.9); Red Blood Count 4.35 M/mm3 (4.2-5.4); White Blood Count 6.1 K/mm3 (4.4-11.0)
[2025-01-27 10:58] LABS: Color, Urine Yellow (Yellow); Glucose, Dipstick Normal (Normal); Ketone-Dipstick Negative (Negative); Leukocyte Esterase-Dipstick 100 /ul (Negative); Nitrite-Dipstick Negative (Negative); Occult Blood-Urine 10 /ul (Negative); Protein-Dipstick 30 mg/dl (Negative); Specific Gravity, Urine 1.020 (1.002-1.030); Urine Bilirubin Dipstick Negative (Negative)
[2025-01-27 11:10] LABS: Red Blood Cells-Urine 0-5 SEEN /hpf (0-5); Squamous Epithelial Cells - UA 10-25 SEEN /hpf (5-10)
[2025-01-27 11:52] LABS: AST(SGOT) 22 U/L (<=31); Alanine Aminotransfer ALT/SGPT 21 U/L (<=34); Albumin, Serum 4.2 g/dL (3.4-4.8); Alkaline Phosphatase 68 U/L (35-104); Anion Gap 12 (5-15); BUN 16 mg/dL (4-19); BUN/Creat Ratio 21.4 RATIO (10-20); Calcium,Total 8.9 mg/dL (7.6-11.0); Carbon Dioxide 27.7 mmol/L (21.0-32.0); Chloride 103 mmol/L (98-108); Cholesterol 141 mg/dL (<=200); Globulin 2.3 g/dL (2.2-4.2); Glucose 94 mg/dL (70-99); Low Density Lipoprotein Calc. 74 mg/dL; Potassium 3.5 mmol/L (3.3-5.1); Triglycerides 134 mg/dL; Very Low Density Lipoprotein 27 mg/dL (5-40); Vitamin D,25 Hydroxy 31.4 ng/mL (30-100); cholesterol:hdl ratio screen 3.51
== END | disposition home or self-care (01) ==
LOC: MFPLAB 08:04
PROVIDERS: PCP Family Medicine; Referring Provider Family Medicine; Visit Provider Family Medicine
DX: I10 Essential (primary) hypertension (principal); E78.00 Pure hypercholesterolemia, unspecified; E55.9 Vitamin D deficiency, unspecified; R73.09 Other abnormal glucose
CPT/HCPCS: 36415; 80053; 80061; 81001; 82306; 83036; 85025

== ENCOUNTER → 2025-04-03 | Outpatient (CLI) | payer MEDICARE, SELFPAY ==
--- NOTE | 2025-04-03 08:15 | BI_ITS ---
EXAM: BI/SCRN MAMM (CAD)W/ANDREA BILAT
== END | disposition home or self-care (01) ==
LOC: OPBI 07:53
PROVIDERS: PCP Family Medicine; Referring Provider Obstetrics & Gynecology; Visit Provider Obstetrics & Gynecology
DX: Z12.31 Encounter for screening mammogram for malignant neoplasm of breast (principal)
CPT/HCPCS: 77063; 77067